=== PATIENT | female | born 1940 | race Hispanic/Latino ===

== ENCOUNTER 2019-07-02 11:59 | Emergency (ER) | payer OTHER ==
--- NOTE | 2019-07-02 15:58 | ER ---
Nurse's Notes [facility] Name: Marsha Jacob Age: 79 yrs Sex: Female : 1940 Arrival Date: 07/02/2019 Time: 12:00 Bed 30 Private MD: Diagnosis: Cellulitis of face-pereorbital Presentation: 07/02 12:51 Presenting complaint: Patient states: I have had redness around my eyes for 3 weeks. la1 Transition of care: patient was not received from another setting of care. Mechanism of Injury: No Mechanism of Injury. The patient denies any loss of vision. Onset of symptoms was July 02, 2019. Risk Assessment: Do you want to hurt yourself or someone else? Patient reports no desire to harm self or others. Initial Sepsis Screen: Does the patient meet any 2 criteria? No. Patient's initial sepsis screen is negative. Does the patient have a suspected source of infection? No. Patient's initial sepsis screen is negative. Care prior to arrival: None. 12:51 Method Of Arrival: Ambulatory la1 12:51 Acuity: OSCAR 5 la1 Historical: - Allergies: 15:19 No Known Allergies; rv - PMHx: 15:19 Bladder Spasms; Hyperlipidemia; Hypertension; rv - PSHx: 15:19 Unable to obtain; rv - Immunization history:: Adult Immunizations up to date. - Social history:: Smoking status: Patient/guardian denies using tobacco. - Ebola Screening: : No symptoms or risks identified at this time. - Family history:: not pertinent. - Hospitalizations: : No recent hospitalization is reported. Screenin:04 Abuse screen: Denies threats or abuse. Denies injuries from another. Nutritional rv screening: No deficits noted. Tuberculosis screening: No symptoms or risk factors identified. Fall Risk None identified. Assessment: 15:03 General: Appears in no apparent distress. comfortable, Behavior is calm, cooperative. rv Pain: Denies pain. Neuro: Level of Consciousness is awake, alert, obeys commands, Oriented to person, place, time, situation. Cardiovascular: Patient's skin is warm and dry. Respiratory: No deficits noted. Airway is patent. GI: No signs and/or symptoms were reported involving the gastrointestinal system. : No signs and/or symptoms were reported regarding the genitourinary system. EENT: Eyes Sclera/Cornea. Derm: Skin is red, PERIORBITAL. Musculoskeletal: No signs and/or symptoms reported regarding the musculoskeletal system. Vital Signs: 12:53 BP 174 / 74; Pulse 78; Resp 16; Temp 98.1; Pulse Ox 100% on R/A; la1 15:19 BP 166 / 75; Pulse 73; Resp 17; Pulse Ox 100% on R/A; rv Visual Acuity: 15:18 Left Eye Visual acuity 20/20, Pupil size 3 mm, ; Right Eye Visual acuity 20/20, Pupil rv size 3 mm, ; Both Eyes Visual acuity 20/20; Without Lenses; ED Course: 12:00 Patient arrived in ED. as 12:52 Triage completed. la1 12:52 Arm band placed on right wrist. la1 14:09 Festus Abreu MD is Attending Physician. ma2 14:48 Gibson Bueno MD is Referral Physician. ma2 15:02 Michael Khan, MICHELINE is Primary Nurse. rv 15:04 Patient has correct armband on for positive identification. Bed in low position. Call rv light in reach. Side rails up X 1. Adult w/ patient. Pulse ox on. NIBP on. 15:04 No provider procedures requiring assistance completed. Patient did not have IV access rv during this emergency room visit. Administered Medications: No medications were administered Outcome: 14:50 Discharge ordered by . ma2 15:05 Discharged to home ambulatory, with family. rv 15:05 Condition: unchanged 15:05 Discharge instructions given to patient, family, Instructed on discharge instructions, rv follow up and referral plans. medication usage, Demonstrated understanding of instructions, follow-up care, medications, Prescriptions given X 3. 15:19 Patient left the ED. rv Signatures: Sue Zepeda Lee, RN RN la1 Festus Abreu MD MD ma2 Michael Khan RN RN rv
--- NOTE | 2019-07-02 15:58 | EDPHYS ---
Physician Documentation [facility] Name: Marsha Jacob Age: 79 yrs Sex: Female : 1940 Arrival Date: 07/02/2019 Time: 12:00 Bed 30 Private MD: ED Physician Festus Arbeu HPI: 07/02 14:45 This 79 yrs old Female presents to ER via Ambulatory with complaints of Eye ma2 Pain. 14:45 periorbital edema and redness . Onset: The symptoms/episode began/occurred gradually, 2 ma2 day(s) ago. Associated signs and symptoms: Pertinent positives: periorbital redness , Pertinent negatives: chills, ear ache, headache. Severity of symptoms: At their worst the symptoms were mild in the emergency department the symptoms are unchanged. The patient has not experienced similar symptoms in the past. Historical: - Allergies: 15:19 No Known Allergies; rv - PMHx: 15:19 Bladder Spasms; Hyperlipidemia; Hypertension; rv - PSHx: 15:19 Unable to obtain; rv - Immunization history:: Adult Immunizations up to date. - Social history:: Smoking status: Patient/guardian denies using tobacco. - Ebola Screening: : No symptoms or risks identified at this time. - Family history:: not pertinent. - Hospitalizations: : No recent hospitalization is reported. ROS: 14:45 Constitutional: Negative for fever, chills, and weight loss, Skin: Negative for injury, ma2 rash, and discoloration. 14:45 Eyes: Positive for discharge, Negative for photophobia, redness, sunken appearance, swelling, tearing, vision loss, visual disturbance. 14:45 All other systems are negative. Exam: 14:45 Visual Acuity: Visual acuity is within normal limits. ma2 14:45 Constitutional: This is a well developed, well nourished patient who is awake, alert, and in no acute distress. Head/Face: Normocephalic, atraumatic. Eyes: has periorbital edema and rendness, otherwise Pupils equal round and reactive to light, extra-ocular motions intact. Lids and lashes normal. Conjunctiva and sclera are non-icteric and not injected. Cornea within normal limits. Periorbital areas with no swelling, redness, or edema. ENT: Nares patent. No nasal discharge, no septal abnormalities noted. Tympanic membranes are normal and external auditory canals are clear. Oropharynx with no redness, swelling, or masses, exudates, or evidence of obstruction, uvula midline. Mucous membranes moist. Neck: Trachea midline, no thyromegaly or masses palpated, and no cervical lymphadenopathy. Supple, full range of motion without nuchal rigidity, or vertebral point tenderness. No Meningismus. Chest/axilla: Normal chest wall appearance and motion. Nontender with no deformity. No lesions are appreciated. Cardiovascular: Regular rate and rhythm with a normal S1 and S2. No gallops, murmurs, or rubs. Normal PMI, no JVD. No pulse deficits. Respiratory: Lungs have equal breath sounds bilaterally, clear to auscultation and percussion. No rales, rhonchi or wheezes noted. No increased work of breathing, no retractions or nasal flaring. Vital Signs: 12:53 BP 174 / 74; Pulse 78; Resp 16; Temp 98.1; Pulse Ox 100% on R/A; la1 15:19 BP 166 / 75; Pulse 73; Resp 17; Pulse Ox 100% on R/A; rv Visual Acuity: 15:18 Left Eye Visual acuity 20/20, Pupil size 3 mm, ; Right Eye Visual acuity 20/20, Pupil rv size 3 mm, ; Both Eyes Visual acuity 20/20; Without Lenses; MDM: 14:09 Patient medically screened. ma2 14:45 Differential diagnosis: Acute iritis of Ultraviolet keratitis in. Data reviewed: vital ma2 signs, nurses notes. Counseling: I had a detailed discussion with the patient and/or guardian regarding: the historical points, exam findings, and any diagnostic results supporting the discharge/admit diagnosis, the presence of at least one elevated blood pressure reading (>120/80) during this emergency department visit, the need for outpatient follow up. Response to treatment: the patient's symptoms have mildly improved after treatment. Administered Medications: No medications were administered Disposition: 07/02/19 14:50 Discharged to Home. Impression: Cellulitis of face - pereorbital. - Condition is Stable. - Discharge Instructions: Preseptal Cellulitis, Adult. - Prescriptions for Augmentin 875- 125 mg Oral Tablet - take 1 tablet by ORAL route every 12 hours for 10 days; 20 tablet. Benadryl 25 mg Oral Capsule - take 1 capsule by ORAL route every 6 hours As needed; 30 tablet. Gentamicin 0.3 % Ophthalmic Drops - instill 1 drop by OPHTHALMIC route every 4 hours for 7 days; 1 bottle. - Medication Reconciliation Form, Thank You Letter, Antibiotic Education, Prescription Opioid Use form. - Follow up: Gibson Bueno MD; When: Tomorrow; Reason: If symptoms return, Continuance of care. Signatures: Osbaldo Jain RN RN la1 Festus Abreu MD MD ma2 Michael Khan RN RN rv Corrections: (The following items were deleted from the chart) 15:19 14:50 07/02/2019 14:50 Discharged to Home. Impression: Cellulitis of face - rv pereorbital. Condition is Stable. Forms are Medication Reconciliation Form, Thank You Letter, Antibiotic Education, Prescription Opioid Use. Follow up: Gibson Bueno; When: Tomorrow; Reason: If symptoms return, Continuance of care. ma2
[2019-07-02 18:32] VITALS: TEMP 98.1; O2SAT 100
[2019-07-02 18:35] VITALS: BP 166/75
== END 2019-07-02 15:19 | disposition home or self-care (01) ==
LOC: ER 11:59
DX: L03.213 Periorbital cellulitis (principal)
CPT/HCPCS: 99283

== ENCOUNTER 2019-07-20 11:27 | Emergency (ER) | payer OTHER ==
[2019-07-20 11:50] LABS: Absolute Lymphocytes (CBC) 2.8 K/uL (0.7-4.9); Basophils % 0.6 % (0-1.3); Hematocrit 40.7 % (36.0-45.0); MPV 11.3 fL (7.6-11.3); Protime INR 1.08; RBC Red Blood Cell Count 4.67 M/uL (3.86-4.86)
[2019-07-20] MEDS ORDERED: ASPIRIN 81 MG CHEWABLE TABLET ONE (11:52)
[2019-07-20] MEDS ORDERED: ONDANSETRON 4 MG/2 ML VIAL ONE (11:53)
--- NOTE | 2019-07-20 12:03 | RAD REPORT ---
EXAM DESCRIPTION: RAD - Chest Single View - 07/20/2019 11:47 am CLINICAL HISTORY: CHEST PAIN Chest pain. COMPARISON: Chest Single View dated 03/30/2016 FINDINGS: Portable technique limits examination quality. The lungs are grossly clear. The heart is normal in size. No displaced fractures. IMPRESSION: No acute intrathoracic process suspected.
[2019-07-20 12:08] LABS: ALT/SGPT 20 U/L (12-78); AST/SGOT 14 U/L (15-37); Albumin 3.8 g/dL (3.4-5.0); Alkaline Phosphatase 65 U/L (45-117); BUN Blood Urea Nitrogen 13 mg/dL (7-18); Bicarbonate 27 mmol/L (21-32); Bilirubin Direct 0.2 mg/dL (0-0.2); Bilirubin Total 0.6 mg/dL (0.2-1.0); Glucose Level 129 mg/dL (74-106); NT PRO-BNP 174 pg/mL (<450); Potassium 3.6 mmol/L (3.5-5.1); Sodium Level 137 mmol/L (136-145); Troponin (Emerg Dept Use Only) < 0.02 ng/mL (0.0-0.045)
--- NOTE | 2019-07-20 12:33 | ER ---
Nurse's Notes [facility] Name: Marsha Jacob Age: 79 yrs Sex: Female : 1940 Arrival Date: 07/20/2019 Time: 11:28 Bed 5 Private MD: Diagnosis: Dizziness and giddiness;Nausea Presentation: 07/20 11:30 Presenting complaint: EMS states: Right sided neck pain x 1 month, headache, nausea, hb dizziness, and left sided chest pain today. Transition of care: patient was not received from another setting of care. Onset of symptoms was July 20, 2019. Risk Assessment: Do you want to hurt yourself or someone else? Patient reports no desire to harm self or others. Initial Sepsis Screen: Does the patient meet any 2 criteria? No. Patient's initial sepsis screen is negative. Does the patient have a suspected source of infection? No. Patient's initial sepsis screen is negative. Care prior to arrival: None. 11:30 Method Of Arrival: EMS: [facility] hb 11:30 Acuity: OSCAR 3 hb Historical: - Allergies: 11:32 No Known Allergies; hb - PMHx: 11:32 Bladder Spasms; Hyperlipidemia; Hypertension; hb - Immunization history:: Adult Immunizations up to date. - Social history:: Smoking status: Patient/guardian denies using tobacco. - Ebola Screening: : No symptoms or risks identified at this time. Screenin:32 Abuse screen: Denies threats or abuse. Denies injuries from another. Nutritional hb screening: No deficits noted. Tuberculosis screening: No symptoms or risk factors identified. Fall Risk None identified. Assessment: 11:33 General: Appears in no apparent distress. Behavior is calm, cooperative. Pain: Pain hb currently is 7 out of 10 on a pain scale. Neuro: Level of Consciousness is awake, alert, obeys commands, Oriented to person, place, time, situation. Cardiovascular: Heart tones S1 S2 present Capillary refill < 3 seconds Patient's skin is warm and dry. Respiratory: Airway is patent Respiratory effort is even, unlabored, Respiratory pattern is regular, symmetrical, Breath sounds are clear bilaterally. GI: Reports nausea. : No signs and/or symptoms were reported regarding the genitourinary system. EENT: No signs and/or symptoms were reported regarding the EENT system. Derm: Skin is pink, warm \T\ dry. Musculoskeletal: Reports right sided neck pain. 12:16 Reassessment: Patient appears in no apparent distress at this time. Patient and/or hb family updated on plan of care and expected duration. Pain level reassessed. Patient is alert, oriented x 3, equal unlabored respirations, skin warm/dry/pink. Vital Signs: 11:31 BP 177 / 86; Pulse 88; Resp 16; Temp 97.9; Pulse Ox 100% on R/A; Weight 70.31 kg; hb Height 5 ft. 2 in. (157.48 cm); Pain 7/10; 11:31 Body Mass Index 28.35 (70.31 kg, 157.48 cm) hb ED Course: 11:28 Patient arrived in ED. hb 11:31 Triage completed. hb 11:31 Arm band placed on. hb 11:32 Patient has correct armband on for positive identification. Bed in low position. Call hb light in reach. Side rails up X 1. 11:35 Inserted saline lock: 20 gauge in left antecubital area, using aseptic technique. Blood ph collected. 11:40 Martin Albert PA is PHCP. jr8 11:40 Naveen Gu MD is Attending Physician. jr8 11:44 EKG done, by ct tech. reviewed by Martin KOO. at1 11:46 X-ray completed. Portable x-ray completed in exam room. Patient tolerated procedure jb2 well. 11:47 XRAY Chest (1 view) In Process Unspecified. EDMS 12:16 Seema Ca, RN is Primary Nurse. hb 12:43 No provider procedures requiring assistance completed. IV discontinued, intact, hb bleeding controlled, No redness/swelling at site. Pressure dressing applied. Administered Medications: 12:05 Drug: Zofran 4 mg Route: IVP; Site: left antecubital; hb 12:05 Drug: Aspirin Chewable Tablet 324 mg Route: PO; hb Outcome: 12:32 Discharge ordered by . jr8 12:43 Discharged to home ambulatory, with family. hb 12:43 Condition: stable 12:43 Discharge instructions given to patient, family, Instructed on discharge instructions, follow up and referral plans. medication usage, Demonstrated understanding of instructions, follow-up care, medications. 12:48 Patient left the ED. hb Signatures: Dispatcher [employer] Familia Shaffer jb2 Martin Albert PA PA jr8 Alma Meyer, agriculture department chair EKG Tat1 Anna Marie Celis, MICHELINE RN Seema Ca RN RN hb
--- NOTE | 2019-07-20 12:33 | EDPHYS ---
Physician Documentation [facility] Name: Marsha Jacob Age: 79 yrs Sex: Female : 1940 Arrival Date: 07/20/2019 Time: 11:28 Bed 5 Private MD: ED Physician Naveen Gu HPI: 07/20 11:55 This 79 yrs old Female presents to ER via EMS with complaints of Neck Pain, jr8 >24Hrs Old, Chest Pain. 11:55 This 79 yrs old Female presents to ER via EMS with complaints of chest pain. jr8 11:56 The patient or guardian reports chest pain that is located primarily in the substernal jr8 area. Onset: this morning. The pain radiates to right neck. Associated signs and symptoms: Pertinent positives: diaphoresis, dizziness, nausea, near-syncope. The chest pain is described as sharp. Severity of pain: At its worst the pain was mild this morning. Pt was watching TV at home and got "sweaty" then became nauseous and dizzy, felt that she was going to pass out. Reports she is still feeling chest pain now.. Historical: - Allergies: 11:32 No Known Allergies; hb - PMHx: 11:32 Bladder Spasms; Hyperlipidemia; Hypertension; hb - Immunization history:: Adult Immunizations up to date. - Social history:: Smoking status: Patient/guardian denies using tobacco. - Ebola Screening: : No symptoms or risks identified at this time. ROS: 11:59 Constitutional: Negative for fever, chills, and weight loss, Eyes: Negative for injury, jr8 pain, redness, and discharge, ENT: Negative for injury, pain, and discharge, Neck: Negative for injury, pain, and swelling, Cardiovascular: Negative palpitations, and edema, + for chest pain Respiratory: Negative for shortness of breath, cough, wheezing, and pleuritic chest pain, Abdomen/GI: Negative for abdominal pain, nausea, vomiting, diarrhea, and constipation, Back: Negative for injury and pain, MS/Extremity: Negative for injury and deformity, Skin: Negative for injury, rash, and discoloration, Neuro: Negative for headache, weakness, numbness, tingling, and seizure. Exam: 11:59 Constitutional: This is a well developed, well nourished patient who is awake, alert, jr8 and in no acute distress. Head/Face: Normocephalic, atraumatic. Eyes: Pupils equal round and reactive to light, extra-ocular motions intact. Lids and lashes normal. Conjunctiva and sclera are non-icteric and not injected. Cornea within normal limits. Periorbital areas with no swelling, redness, or edema. Neck: Trachea midline, no thyromegaly or masses palpated, and no cervical lymphadenopathy. Supple, full range of motion without nuchal rigidity, or vertebral point tenderness. No Meningismus. Chest/axilla: Normal chest wall appearance and motion. Nontender with no deformity. No lesions are appreciated. Cardiovascular: Regular rate and rhythm with a normal S1 and S2. No gallops, murmurs, or rubs. Normal PMI, no JVD. No pulse deficits. Respiratory: Lungs have equal breath sounds bilaterally, clear to auscultation and percussion. No rales, rhonchi or wheezes noted. No increased work of breathing, no retractions or nasal flaring. Abdomen/GI: Soft, non-tender, with normal bowel sounds. No distension or tympany. No guarding or rebound. No evidence of tenderness throughout. Back: No spinal tenderness. No costovertebral tenderness. Full range of motion. Skin: Warm, dry with normal turgor. Normal color with no rashes, no lesions, and no evidence of cellulitis. MS/ Extremity: Pulses equal, no cyanosis. Neurovascular intact. Full, normal range of motion. Neuro: Awake and alert, GCS 15, oriented to person, place, time, and situation. Cranial nerves II-XII grossly intact. Motor strength 5/5 in all extremities. Sensory grossly intact. Cerebellar exam normal. Normal gait. 11:59 Cardiovascular: Rate: normal, Pulses: no pulse deficits are appreciated, Heart sounds: normal, normal S1and S2, Edema: is not appreciated, JVD: is not appreciated. Vital Signs: 11:31 BP 177 / 86; Pulse 88; Resp 16; Temp 97.9; Pulse Ox 100% on R/A; Weight 70.31 kg; hb Height 5 ft. 2 in. (157.48 cm); Pain 7/10; 11:31 Body Mass Index 28.35 (70.31 kg, 157.48 cm) hb MDM: 11:40 Patient medically screened. jr8 12:26 The patient was given aspirin in the Emergency Department. Data reviewed: vital signs, jr8 nurses notes, EMS record, lab test result(s), EKG, radiologic studies. Data interpreted: Pulse oximetry: on room air is 100 %. Interpretation: normal. Counseling: I had a detailed discussion with the patient and/or guardian regarding: the historical points, exam findings, and any diagnostic results supporting the discharge/admit diagnosis, the presence of at least one elevated blood pressure reading (>120/80) during this emergency department visit, lab results, radiology results, the need for outpatient follow up, a director dermatology, a family practitioner. Special discussion: Based on the patient's history, exam, and Dx evaluation, there is no indication for emergent intervention or inpatient Tx. It is understood by the patient/guardian that if the Sx's persist or worsen they need to return immediately for re-evaluation. I discussed with the patient/guardian in detail that at this point there is no indication for admission to the hospital. It is understood, however, that if the symptoms persist or worsen the patient needs to return immediately for re-evaluation. ED course: Pt currently chest pain free in the ED, reports that the pain that she had in her chest was a sharp non-radiating pain and that the pain in her neck is a chronic issue that she has been dealing with. Pt able to get up and walk without dizziness, SOB, or chest pain. Family and patient amendable to going home and scheduling appointments with PCP and cardiology. Pt did not have syncope, reports eating raw oysers last night and having some stomach upset last night as well. Denies abd pain. ECG, CXR normal, troponin negative in ED. extensive discussion with family regarding return precautions and need for FU with PCP and cardiology. . 07/20 11:35 Order name: Basic Metabolic Panel; Complete Time: 12:09 ph 07/20 11:35 Order name: CBC with Diff; Complete Time: 11:57 ph 07/20 11:35 Order name: LFT's; Complete Time: 12: ph 07/20 11:35 Order name: Magnesium; Complete Time: 12: ph 07/20 11:35 Order name: NT PRO-BNP; Complete Time: 12: ph 07/20 11:35 Order name: PT-INR; Complete Time: 11:57 ph 07/20 11:35 Order name: Troponin (emerg Dept Use Only); Complete Time: 12:09 ph 07/20 11:35 Order name: XRAY Chest (1 view); Complete Time: 12:07 ph 07/20 11:35 Order name: EKG; Complete Time: 11:36 ph 07/20 11:35 Order name: Cardiac monitoring; Complete Time: 11:35 ph 07/20 11:35 Order name: EKG - Nurse/Tech; Complete Time: 12:02 ph 07/20 11:35 Order name: IV Saline Lock; Complete Time: 11:35 ph 07/20 11:35 Order name: Labs collected and sent; Complete Time: 11:35 ph 07/20 11:35 Order name: O2 Per Protocol; Complete Time: 11:35 ph 07/20 11:35 Order name: O2 Sat Monitoring; Complete Time: 11:35 ph Administered Medications: 12:05 Drug: Zofran 4 mg Route: IVP; Site: left antecubital; hb 12:05 Drug: Aspirin Chewable Tablet 324 mg Route: PO; hb Disposition: 15:29 Co-signature as Attending Physician, Naveen Gu MD. Disposition: 07/20/19 12:32 Discharged to Home. Impression: Dizziness and giddiness, Nausea. - Condition is Stable. - Discharge Instructions: Dizziness, Nausea, Adult, Near-Syncope. - Family Work Release, Medication Reconciliation Form, Thank You Letter form. - Follow up: Private Physician; When: 2 - 3 days; Reason: Recheck today's complaints, Re-evaluation by your physician. Follow up: Emergency Department; Reason: If symptoms return, Worsening of condition. - Problem is new. - Symptoms are resolved. Signatures: Dispatcher [employer] EDMS Martin Albert PA PA jr8 Anna Marie Celis RN RN Seema Ca RN RN Naveen Gu MD MD Corrections: (The following items were deleted from the chart) 12:48 12:32 07/20/2019 12:32 Discharged to Home. Impression: Dizziness and giddiness; Nausea. hb Condition is Stable. Forms are Medication Reconciliation Form, Thank You Letter, Antibiotic Education, Prescription Opioid Use. Follow up: Private Physician; When: 2 - 3 days; Reason: Recheck today's complaints, Re-evaluation by your physician. Follow up: Emergency Department; Reason: If symptoms return, Worsening of condition. Problem is new. Symptoms are resolved. jr8
--- NOTE | 2019-07-20 12:53 | EKG ---
Test Date: 2019-07-20 Test Time: 11:52:12 [employer] Supervisor: NOHEMY MEASUREMENT RESULTS: Intervals: Rate: 75 MN: 168 QRSD: 86 QT: 392 QTc: 437 [place]: P: 40 MN: 168 QRS: 36 T: 52 INTERPRETIVE STATEMENTS: Normal sinus rhythm Normal ECG Compared to ECG 03/30/2016 19:10:09 No significant changes Electronically Signed On 07-20-19 12:52:46 CDT by Raz Shelley
[2019-07-20 13:06] VITALS: BP 177/86; TEMP 97.9; O2SAT 100
== END 2019-07-20 12:48 | disposition home or self-care (01) ==
LOC: ER 11:27
DX: R42 Dizziness and giddiness (principal); R11.0 Nausea
CPT/HCPCS: 93005; 85025; 80048; 36415; 83735; 85610; 80076; 84484; 83880; 71045; 96374; 99284; J2405

== ENCOUNTER 2021-07-12 18:37 | Inpatient (IN) | payer OTHER ==
[2021-07-12] MEDS ORDERED: ONDANSETRON 4 MG/2 ML VIAL ONE (19:30)
--- NOTE | 2021-07-12 19:43 | RAD REPORT ---
EXAM DESCRIPTION: RAD - Chest Single View - 07/12/2021 7:22 pm CLINICAL HISTORY: fall, chest pain COMPARISON: July 2019 TECHNIQUE: AP portable chest image was obtained 07/12/2021 7:22 pm . FINDINGS: Lungs are clear. Interstitial pattern matches comparison. Heart and vasculature are normal . No measurable pleural effusion and no pneumothorax. No acute bony abnormality seen. No acute aortic findings suspected. IMPRESSION: No acute cardiopulmonary process. No significant change from comparison study.
[2021-07-12 20:24] LABS: Absolute Lymphocytes (CBC) 1.3 K/uL (0.7-4.9); Basophils % 0.3 % (0-1.3); Hematocrit 37.2 % (36.0-45.0); Lymphocytes % 7.7 % (15.3-44.8); MPV 10.6 fL (7.6-11.3); RBC Red Blood Cell Count 4.26 M/uL (3.86-4.86)
[2021-07-12 20:28] LABS: Protime INR 1.1
--- NOTE | 2021-07-12 20:41 | RAD REPORT ---
EXAM DESCRIPTION: CT - Head C Spine Cap W Con - 07/12/2021 7:52 pm CLINICAL HISTORY: low back pain from fall, fall with head, neck, chest and abdomen pain COMPARISON: Abdomen Pelvis W Contrast dated 03/30/2016 TECHNIQUE: Axial [address] head images were obtained. Axial [address] cervical spine images were obtaine d with sagittal and coronal reconstruction images reviewed. During dynamic enhancement of 100mL non-i onic contrast, axial 5 mm images of the chest, abdomen and pelvis were obtained. Biphasic technique p erformed of the abdomen and pelvis. All CT scans are performed using dose optimization technique as appropriate and may include automated exposure control or mA/KV adjustment according to patient size. FINDINGS: No intracranial hemorrhage, mass or edema. No midline shift or abnormal fluid collection. Moderate atrophy and chronic ischemic changes are present. Ventricles are in proportion to the amount of volume loss. Mastoid air cells and paranasal sinuses are clear. No skull fracture. CT cervical spine imaging shows normal height. Normal alignment of the vertebrae. C5-6, C6-7 and C7-T 1 disc space narrowing present. Prominent facet joint degenerative changes are present at multiple le vels. Bony foraminal encroachment changes are present on the right at C5-6 and bilateral at C6-7. No paraspinal mass or hematoma seen. Central canal detail is inherently limited. Concerns for traumatic disc herniation or traumatic cord injury can be further addressed with MR imaging. Trace amount of airspace opacification present in the subpleural posterior midportion left lower lobe . This could be atelectasis. With fall history, punctate focus of pulmonary contusion is possible. No mediastinal hematoma and the aorta and pulmonary arteries are unremarkable. No chest will mass or ab normal axillary finding. No rib fractures are present. No acute thoracic vertebral body finding. CT abdomen and pelvis show no injury to solid abdominal viscera. Gallbladder and biliary tree are unr emarkable. No bowel injury or significant finding. No free air, free fluid or abnormal stranding. No urinary bladder abnormality. Very minimal loss in height in the superior endplate L1. There does appear to be an acute fracture li ne parallel to the superior endplate. Posterior wall height is preserved. Overall loss in height is a pproximately 10%. Pedicles are intact. No pelvic fracture. No significant vascular finding. IMPRESSION: No significant CT Head finding. Patient has moderate severity atrophy and chronic ischem ic change. No significant CT Cervical Spine finding. Patient has moderate severity mid and lower cervical spine degenerative change. No significant CT chest finding. There is punctate focus of atelectasis versus very minimal pulmonary contusion posterior left lower lobe. No associated rib fracture or pleural abnormality. No traumatic injury to the soft tissues of the abdomen or pelvis. Suspected 10% compression fracture of the superior endplate L1 with posterior wall height preserved. Correlation is needed with localizing symptoms.
[2021-07-12 20:58] LABS: ALT/SGPT 22 U/L (12-78); Alkaline Phosphatase 57 U/L (45-117); BUN Blood Urea Nitrogen 18 mg/dL (7-18); Bicarbonate 26 mmol/L (21-32); Bilirubin Direct < 0.1 mg/dL (0-0.2); Bilirubin Total 0.4 mg/dL (0.2-1.0); Glucose Level 146 mg/dL (74-106); NT PRO-BNP 172 pg/mL (<450); Protein, Total 6.8 g/dL (6.4-8.2); Sodium Level 136 mmol/L (136-145); Troponin (Emerg Dept Use Only) < 0.02 ng/mL (0.0-0.045)
[2021-07-12 21:02] LABS: AST/SGOT 23 U/L (15-37); Magnesium 2.1 mg/dL (1.8-2.4); Potassium 4.3 mmol/L (3.5-5.1)
[2021-07-12 21:30] LABS: Blood Morphology Comment NOT SEEN (NOT SEEN); Platelet Estimate ADEQ; White Blood Cell Scan OK (OK)
[2021-07-12 21:40] LABS: Urine Blood 2+ (Negative); Urine Glucose Negative (Negative); Urine Protein Negative (Negative); Urine Specific Gravity 1.015 (1.005-1.030); Urine pH 5.5 (5.0-7.0)
--- NOTE | 2021-07-12 21:44 | ER ---
Nurse's Notes [facility] Name: Marsha Jacob Age: 81 yrs Sex: Female : 1940 Arrival Date: 07/12/2021 Time: 18:42 Bed 14 Private MD: Diagnosis: UTI/ Urinary tract infection, site not specified;Weakness;Fracture of first lumbar vertebra;Fall on same level, unspecified Presentation: 07/12 18:50 Chief complaint: Patient states: [place] weak, fell, and hit head. No LOC. Reports low ll1 back pain since the fall. EMS states: 20 G L hand, fentanyl 100 mcg IV given en route, she started to vomit so they gave her Zofran 4 mg IV for that. Coronavirus screen: Client denies travel out of the [place] in the last 14 days. At this time, the client does not indicate any symptoms associated with coronavirus-19. Ebola Screen: Patient denies travel to an Ebola-affected area in the 21 days before illness onset. Initial Sepsis Screen: Does the patient meet any 2 criteria? No. Patient's initial sepsis screen is negative. Does the patient have a suspected source of infection? No. Patient's initial sepsis screen is negative. Risk Assessment: Do you want to hurt yourself or someone else? Patient reports no desire to harm self or others. Onset of symptoms was July 12, 2021. 18:50 Method Of Arrival: EMS: [place] [id number] 18:50 Acuity: OSCAR 3 ll1 Triage Assessment: 18:53 General: Appears ill, Behavior is calm, cooperative, appropriate for age. Pain: ll1 Complains of pain in low back Quality of pain is described as aching, Aggravated by increased activity. Neuro: Level of Consciousness is awake, alert, obeys commands, Oriented to person, place, time, situation, Appropriate for age Weight And Test Bar Clerk are equal bilaterally Moves all extremities. Full function Speech is normal, Facial symmetry appears normal, Reports a syncopal episode. Cardiovascular: No deficits noted. Respiratory: No deficits noted. GI: Abdomen is flat, Bowel sounds present X 4 quads. Abd is soft and non tender X 4 quads. Reports nausea, vomiting. Musculoskeletal: Circulation, motion, and sensation intact. Capillary refill < 3 seconds, Range of motion: intact in all extremities, Reports pain in low back. Injury Description: Head injury. Historical: - Allergies: 18:53 No Known Drug Allergies; ll1 - PMHx: 18:53 Bladder Spasms; Hyperlipidemia; Hypertension; ll1 - Immunization history:: Adult Immunizations up to date. - Social history:: Smoking status: Patient denies any tobacco usage or history of. Screenin:55 Abuse screen: Denies threats or abuse. Nutritional screening: No deficits noted. ll1 Tuberculosis screening: No symptoms or risk factors identified. Fall Risk Fall in past 12 months (25 points). IV access (20 points). Gait- Weak (10 pts.). Total Lawler Fall Scale indicates High Risk Score (45 or more points). Fall prevention measures have been instituted. Side Rails Up X 2 Placed Close to Nursing Station Frequent Obs/Assessments Occuring Family Present and informed to notify staff if the need to leave the bedside As available patient and family educated on Fall Prevention Program and Strategies. Assessment: 19:15 Reassessment: Patient appears in no apparent distress at this time. General: Appears cc4 uncomfortable, Behavior is anxious. Pain: Complains of pain in back waist Pain began 1 hour ago. Vital Signs: 18:50 BP 219 / 74; Pulse 91; Resp 17; Temp 98.5(TE); Pulse Ox 98% ; Pain 8/10; ll1 19:15 BP 172 / 78; Pulse 88; Resp 20; Temp 97.9(O); Pulse Ox 95% on R/A; cc4 21:50 BP 157 / 63; Pulse 94; Resp 18; Temp 97.7; Pulse Ox 96% on R/A; cc4 23:00 BP 185 / 74; Pulse 96; Resp 18; Pulse Ox 100% on R/A; cc4 1011 00:00 BP 177 / 70; Pulse 92; Resp 18; Temp 98.1; Pulse Ox 95% on R/A; cc4 01:00 BP 179 / 67; Pulse 81; Resp 18 S; Pulse Ox 98% on R/A; cc4 02:00 BP 191 / 75; Pulse 83; Resp 18; Pulse Ox 95% on R/A; cc4 03:00 BP 193 / 53; Pulse 76; Resp 20; Pulse Ox 96% on R/A; cc4 04:30 BP 181 / 64; Pulse 82; Resp 18; Temp 97.9(O); Pulse Ox 96% on R/A; cc4 NIH Stroke Scale Scores: 07/12 19:25 NIHSS Score: 0 cp ED Course: 18:42 Patient arrived in ED. ll1 18:50 Arm band placed on Patient placed in an exam room, on a stretcher. ll1 18:53 Triage completed. ll1 18:53 Maintain EMS IV. Dressing intact. Good blood return noted. Site clean \\T\\ dry. Gauge \\T\\ ll 1 site: 20 G L hand. 18:55 Patient has correct armband on for positive identification. Bed in low position. Call ll1 light in reach. Side rails up X2. Pulse ox on. NIBP on. 18:58 Haroon Maki PA is PHCP. cp 18:58 Farrukh Xiong MD is Attending Physician. cp 19:08 Alicia Fletcher RN is Primary Nurse. ll1 19:22 XRAY Chest (1 view) In Process Unspecified. EDMS 19:51 CT Traumagram (Head C Spine CAP W Con) In Process Unspecified. EDMS 21:42 Doe Carvajal PA is Hospitalizing Provider. cp 07/13 01:27 Tomas Andersen is Hospitalizing Provider. cp 01:34 COVID-19 : Document "Date of Symptom Onset" if Symptomatic. Sent. cc4 04:45 No provider procedures requiring assistance completed. cc4 04:45 Patient admitted, IV remains in place. intact. cc4 Administered Medications: 07/12 19:00 Drug: NS 0.9% 500 ml Route: IV; Rate: bolus; Site: left wrist; cc4 19:00 Drug: NS 0.9% 500 ml Route: IV; Rate: 100 ml/hr; Site: left wrist; cc4 07/13 05:02 Follow up: IV Intake: 1000ml cc4 07/12 19:07 Drug: Zofran (Ondansetron) 4 mg Route: IVP; Site: left hand; ll1 21:22 CANCELLED (Physician Discretion): morphine 2 mg IVP once; (PAIN>8) RASS on ADMN: cp Combtv4, Very Agttd3, Agttd2, Rstlss1, AlertClm0, Drwsy-1, LtSdtn-2, ModSdtn-3, DpSdtn-4, UnArsble-5 x2 23:55 Drug: morphine 2 mg Route: IVP; Site: left wrist; cc4 07/13 01:00 Follow up: Response: No adverse reaction; Pain is decreased cc4 07/12 23:55 Drug: Rocephin (cefTRIAXone) 1 grams Route: IV; Rate: calculated rate; Site: left wrist;cc4 07/13 01:00 Follow up: Urine output 400 ml; Response: No adverse reaction cc4 Intake: 05:02 IV: 1000ml; Total: 1000ml. cc4 Output: 01:00 Urine: 400ml; Total: 400ml. cc4 Outcome: 07/12 21:43 Decision to Hospitalize by Provider. cp 07/13 04:45 Condition: stable cc4 04:45 Discharge instructions given to Instructed on the need for admit, Demonstrated cc4 understanding of instructions. 04:59 Admitted to Med/surg accompanied by tech, room 213, Report called to MICHELINE Segovia cc4 05:04 Patient left the ED. cc4 NIH Stroke Scale - NIH Stroke Score Date: 07/12/2021 Time: 19:25 Total Score = 0 1a. Level of Consciousness (LOC) - 0(Alert) 1b. Level of Consciousness (LOC) (Month \\T\\ Age) - 0(Both) 1c. LOC Commands (Open \\T\\ Closes Eyes/Athlete Manager) - 0(Both) 2. Best Gaze (Lateral Gaze Paresis) - 0(Normal) 3. Visual Field Loss - 0(No visual loss) 4. Facial Palsy - 0(Normal) 5a. Left Arm: Motor (10-second hold) - 0(No drift) 5b. Right Arm: Motor (10-second hold) - 0(No drift) 6a. Left Leg: Motor (5-second hold - always test supine) - 0(No drift) 6b. Right Leg: Motor (5-second hold - always test supine) - 0(No drift) 7. Limb Ataxia (finger/nose \\T\\ heel/jackson - test with eyes open) - 0(Absent) 8. Sensory Loss (pinprick arms/legs/face) - 0(Normal) 9. Best Language: Aphasia (description/naming/reading) - 0(No aphasia) 10. Dysarthria (speech clarity - read or repeat words) - 0(Normal) 11. Extinction and Inattention (visual/tactile/auditory/spatial/personal) - 0(No abnormality) Initials: cp Signatures: Dispatcher [employer] EDHaroon Senior PA PA cp Lewis, Lynsay RN RN ll1 Daiana Nagel RN RN cc4
--- NOTE | 2021-07-12 21:44 | EDPHYS ---
Physician Documentation [facility] Name: Marsha Jacob Age: 81 yrs Sex: Female : 1940 Arrival Date: 07/12/2021 Time: 18:42 Bed 14 Private MD: ED Physician Farrukh Xiong HPI: 07/12 19:15 This 81 yrs old Female presents to ER via EMS with complaints of Back Pain cp from Fall. 19:15 Details of fall: The patient fell from an upright position, while walking, and struck a cp tile surface. 19:15 Onset: The symptoms/episode began/occurred just prior to arrival. Associated injuries: cp The patient sustained upper back injury, pain, injury to the low back, pain. 19:15 Severity of symptoms: in the emergency department the symptoms have improved, cp moderately, patient given 100 mcg Fentanyl IV by EMS ferry boat captain. 19:15 Patient reports she became weak causing her to fall to ground. Patient denies syncope cp and denies LOC. Historical: - Allergies: 18:53 No Known Drug Allergies; ll1 - PMHx: 18:53 Bladder Spasms; Hyperlipidemia; Hypertension; ll1 - Immunization history:: Adult Immunizations up to date. - Social history:: Smoking status: Patient denies any tobacco usage or history of. ROS: 19:20 Constitutional: Negative for body aches, chills, fever, poor PO intake. cp 19:20 Eyes: Negative for injury, pain, redness, and discharge. cp 19:20 Cardiovascular: Negative for chest pain, palpitations. 19:20 Respiratory: Negative for cough, shortness of breath, wheezing. 19:20 Abdomen/GI: Positive for nausea, Negative for abdominal pain, vomiting, diarrhea, constipation, black/tarry stool, rectal bleeding. 19:20 Back: Positive for pain at rest, pain with movement, of the thoracic area and lumbar area. 19:20 MS/extremity: Negative for injury or acute deformity, decreased range of motion. 19:20 Neuro: Positive for weakness, Negative for altered mental status, dizziness, headache, loss of consciousness, syncope. 19:20 All other systems are negative. Exam: 19:25 Constitutional: The patient appears in no acute distress, alert, awake, cp non-diaphoretic, non-toxic, well developed, well nourished, uncomfortable. 19:25 Head/Face: Normocephalic, atraumatic. cp 19:25 Eyes: Periorbital structures: appear normal, Pupils: equal, round, and reactive to light and accomodation, Extraocular movements: intact throughout, Conjunctiva: normal, no exudate, no injection, Sclera: no appreciated abnormality, Lids and lashes: appear normal, bilaterally. 19:25 ENT: External ear(s): are unremarkable, Nose: is normal, Mouth: Lips: moist, Oral mucosa: moist, Posterior pharynx: Airway: no evidence of obstruction, patent. 19:25 Neck: C-spine: vertebral tenderness, is not appreciated, crepitus, is not appreciated, ROM/movement: pain, is not appreciated, limited range of motion, is not appreciated. 19:25 Chest/axilla: Inspection: normal, Palpation: is normal, no crepitus, no tenderness. 19:25 Cardiovascular: Rate: normal, Rhythm: regular, Edema: is not appreciated, JVD: is not appreciated. 19:25 Respiratory: the patient does not display signs of respiratory distress, Respirations: normal, no use of accessory muscles, no retractions, labored breathing, is not present, Breath sounds: are clear throughout, no decreased breath sounds, no stridor, no wheezing. 19:25 Abdomen/GI: Inspection: abdomen appears normal, Bowel sounds: active, all quadrants, Palpation: abdomen is soft and non-tender, in all quadrants, rebound tenderness, is not appreciated, involuntary guarding, is not appreciated. 19:25 Back: pain, that is severe, of the thoracic area and lumbar area, ROM is painful, with all movement, Straight leg raises: pain bilaterally. 19:25 Skin: cellulitis, is not appreciated, no rash present. 19:25 Neuro: Orientation: to person, place \\T\\ time. Mentation: is normal, Cerebellar function: Romberg testing is negative, normal finger to nose testing, Motor: moves all fours, general weakness with no focal deficits, Sensation: is normal. 19:37 ECG was reviewed by the Attending Physician. cp Vital Signs: 18:50 BP 219 / 74; Pulse 91; Resp 17; Temp 98.5(TE); Pulse Ox 98% ; Pain 8/10; ll1 19:15 BP 172 / 78; Pulse 88; Resp 20; Temp 97.9(O); Pulse Ox 95% on R/A; cc4 21:50 BP 157 / 63; Pulse 94; Resp 18; Temp 97.7; Pulse Ox 96% on R/A; cc4 23:00 BP 185 / 74; Pulse 96; Resp 18; Pulse Ox 100% on R/A; cc4 07/13 00:00 BP 177 / 70; Pulse 92; Resp 18; Temp 98.1; Pulse Ox 95% on R/A; cc4 01:00 BP 179 / 67; Pulse 81; Resp 18 S; Pulse Ox 98% on R/A; cc4 02:00 BP 191 / 75; Pulse 83; Resp 18; Pulse Ox 95% on R/A; cc4 03:00 BP 193 / 53; Pulse 76; Resp 20; Pulse Ox 96% on R/A; cc4 04:30 BP 181 / 64; Pulse 82; Resp 18; Temp 97.9(O); Pulse Ox 96% on R/A; cc4 NIH Stroke Scale Scores: 07/12 19:25 NIHSS Score: 0 cp MDM: 19:07 Patient medically screened. cp 19:30 Differential diagnosis: closed head injury, contusion, fracture, multiple trauma, CVA. cp 21:45 Data reviewed: vital signs, nurses notes, lab test result(s), EKG, radiologic studies, cp CT scan, plain films. 21:45 Test interpretation: by ED physician or midlevel provider: ECG, plain radiologic cp studies. Counseling: I had a detailed discussion with the patient and/or guardian regarding: the historical points, exam findings, and any diagnostic results supporting the discharge/admit diagnosis, lab results, radiology results, the need for further work-up and treatment in the hospital. Response to treatment: the patient's symptoms have mildly improved after treatment, and as a result, I will admit patient. Physician consultation: Doe KOO was called at 21:40, was contacted at 21:40, regarding admission, to the telemetry unit. patient's condition. 07/12 19:10 Order name: Basic Metabolic Panel; Complete Time: 21:11 cp 07/12 21:11 Interpretation: Normal except: GLUC 146; GFR 82; CA 8.4. cp 07/12 19:10 Order name: CBC with Diff; Complete Time: 21:37 cp 07/12 20:44 Interpretation: Normal except: WBC 16.60; MONICA% 88.1; LYM% 7.7; NEUT A 14.6. cp 07/12 19:10 Order name: LFT's; Complete Time: 21:11 cp 07/12 19:10 Order name: Magnesium; Complete Time: 21:11 cp 07/12 19:10 Order name: NT PRO-BNP; Complete Time: 21:11 cp 07/12 19:10 Order name: PT-INR; Complete Time: 20:42 cp 07/12 19:10 Order name: Troponin (emerg Dept Use Only); Complete Time: 21:11 cp 07/12 19:10 Order name: Urine Microscopic Only; Complete Time: 23:48 cp 07/12 19:10 Order name: Ptt, Activated; Complete Time: 20:42 cp 07/12 20:38 Order name: CBC Smear Scan; Complete Time: 21:37 EDMS 07/12 21:39 Order name: COVID-19 : Document "Date of Symptom Onset" if Symptomatic. cp 07/12 21:40 Order name: Urine Dipstick-Ancillary; Complete Time: 21:42 EDMS 07/12 21:42 Order name: Procalcitonin; Complete Time: 23:48 cp 07/12 21:42 Order name: Lactate; Complete Time: 23:48 cp 07/12 19:10 Order name: Cath cp 07/12 19:10 Order name: CT Traumagram (Head C Spine CAP W Con); Complete Time: 20:42 cp 07/12 19:10 Order name: XRAY Chest (1 view); Complete Time: 20:42 cp 07/12 19:10 Order name: EKG; Complete Time: 19:11 cp 07/12 19:10 Order name: Cardiac monitoring; Complete Time: 19:43 cp 07/12 19:10 Order name: EKG - Nurse/Tech; Complete Time: 19:43 cp 07/12 19:10 Order name: IV Saline Lock; Complete Time: 19:43 cp 07/12 19:10 Order name: Labs collected and sent; Complete Time: 21:50 cp 07/12 21:42 Order name: Blood Culture Adult (2) cp 07/13 03:14 Order name: SARS-COV-2 RT PCR EDMS 07/12 19:10 Order name: O2 Per Protocol; Complete Time: 21:51 cp 07/12 19:10 Order name: O2 Sat Monitoring; Complete Time: 21:51 cp 07/12 19:10 Order name: Urine Dipstick-Ancillary (obtain specimen); Complete Time: 21:50 cp EC:37 Rate is 88 beats/min. Rhythm is regular. WV interval is normal. QRS interval is normal. cp QT interval is normal. T waves are Inverted in lead aVR. Interpreted by me. Reviewed by me. Administered Medications: 19:00 Drug: NS 0.9% 500 ml Route: IV; Rate: bolus; Site: left wrist; [facility] 19:00 Drug: NS 0.9% 500 ml Route: IV; Rate: 100 ml/hr; Site: left wrist; [facility] 07/13 05:02 Follow up: IV Intake: 1000ml [facility] 07/12 19:07 Drug: Zofran (Ondansetron) 4 mg Route: IVP; Site: left hand; 1 21:22 CANCELLED (Physician Discretion): morphine 2 mg IVP once; (PAIN>8) RASS on ADMN: cp Combtv4, Very Agttd3, Agttd2, Rstlss1, AlertClm0, Drwsy-1, LtSdtn-2, ModSdtn-3, DpSdtn-4, UnArsble-5 x2 23:55 Drug: morphine 2 mg Route: IVP; Site: left wrist; 4 07/13 01:00 Follow up: Response: No adverse reaction; Pain is decreased [facility] 07/12 23:55 Drug: Rocephin (cefTRIAXone) 1 grams Route: IV; Rate: calculated rate; Site: left wrist;4 07/13 01:00 Follow up: Urine output 400 ml; Response: No adverse reaction [facility] Disposition Summary: 07/12/21 21:43 Hospitalization Ordered Hospitalization Status: Inpatient Admission cp [facility] cp Condition: Stable cp Problem: new cp Symptoms: have improved cp Bed/Room Type: Standard cp Provider: Tomas Andersen(07/13/21 01:27) cp Room Assignment: [facility](07/13/21 03:20) mw Diagnosis - UTI/ Urinary tract infection, site not specified cp - Weakness cp - Fracture of first lumbar vertebra cp - Fall on same level, unspecified cp Forms: - Medication Reconciliation Form cp - SBAR form cp NIH Stroke Scale - NIH Stroke Score Date: 07/12/2021 Time: 19:25 Total Score = 0 1a. Level of Consciousness (LOC) - 0(Alert) 1b. Level of Consciousness (LOC) (Month \\T\\ Age) - 0(Both) 1c. LOC Commands (Open \\T\\ Closes Eyes/Personal Financial Counselor) - 0(Both) 2. Best Gaze (Lateral Gaze Paresis) - 0(Normal) 3. Visual Field Loss - 0(No visual loss) 4. Facial Palsy - 0(Normal) 5a. Left Arm: Motor (10-second hold) - 0(No drift) 5b. Right Arm: Motor (10-second hold) - 0(No drift) 6a. Left Leg: Motor (5-second hold - always test supine) - 0(No drift) 6b. Right Leg: Motor (5-second hold - always test supine) - 0(No drift) 7. Limb Ataxia (finger/nose \\T\\ heel/jackson - test with eyes open) - 0(Absent) 8. Sensory Loss (pinprick arms/legs/face) - 0(Normal) 9. Best Language: Aphasia (description/naming/reading) - 0(No aphasia) 10. Dysarthria (speech clarity - read or repeat words) - 0(Normal) 11. Extinction and Inattention (visual/tactile/auditory/spatial/personal) - 0(No abnormality) Initials: cp Addendum: 07/16/2021 01:57 Co-signature as Attending Physician, Farrukh Xiong MD I agree with the collections attorney and plan of care. Attestation: The patient's history, exam findings, diagnostics, and a summary of any interventions or procedures was reviewed in detail with Haroon KOO. Signatures: Dispatcher [employer] EDMS Debora Sullivan RN RN mw Nieto, Roman, MD MD rn Page, Corey, PA PA cp Lewis, Lynsay, RN RN ll1 Daiana Nagel RN RN cc4 Corrections: (The following items were deleted from the chart) 07/12 21:11 21:11 Normal except: GLUC 146; GFR 82. cp cp 21:22 21:21 morphine 2 mg IVP once; (PAIN>8) RASS on ADMN: Combtv4, Very Agttd3, cp Agttd2, Rstlss1, AlertClm0, Drwsy-1, LtSdtn-2, ModSdtn-3, DpSdtn-4, UnArsble-5 x2 ordered. cp 07/13 01:27 07/12 21:43 Doe Carvajal cp 07/13 03:20 07/12 21:43 cp
--- NOTE | 2021-07-12 22:36 | P.HP ---
Certification for Inpatient Patient will require the following post-hospital care: None Practitioner: I am a practitioner with admitting privileges, knowledge of patient current condition, hospital course, and medical plan of care. Services: Services provided to patient in accordance with Admission requirements found in Title 42 Section 412.3 of the Code of Federal Regulations Patient History Date of Service: 07/12/21 Primary Care Provider: Tobin Reason for admission: compression fracture, UTI History of Present Illness: Ms. Jacob is an 81 yo F with HTN, HLD who presents wafter a fall. She was doing laundry and whe nshe stood up she felt dizzy and fell backwards and hit her head. She did not lose consciousness. She then had severe lower back pain and nausea, and she received 100 mcg of fentanyl by EMS. Pain now markedly improved. Denies vomiting, confusion, urinary symptoms. Per her daughter, she has been falling a lot lately. A week ago she [place] and fell [place] the [place] after it rained. WBC 16.6. UA positive for nitrites. CT Traumogram: Suspected 10% compression fracture of the superior endplate L1 with posterior wall height preserved. Correlation is needed with localizing symptoms. Allergies No Known Drug Allergies Allergy (Verified 03/23/16 16:28) Unknown No Known Allergies Allergy (Uncoded 03/31/16 08:32) Unknown Home Medications: Lisinopril/Hydrochlorothiazide [Zestoretic 20-25 mg Tablet] 1 each PO DAILY 03/23/16 Oxybutynin Chloride [Ditropan] 5 mg PO BID 03/23/16 Simvastatin [Zocor] 40 mg PO BEDTIME 03/23/16 Ciprofloxacin HCl [Cipro 500 MG Tablet] 500 mg PO BID #10 tab 03/24/16 Codeine/APAP [Tylenol W/Codeine #3 tab] 1 tab PO Q4HP PRN #30 tab 03/24/16 Travoprost (Benzalkonium) [Travatan 0.004% Eye Drop] 1 applic OTIC DAILY 03/31/16 - Past Medical/Surgical History Diabetic: No -: HTN -: HLD -: cardiac stent - Family History Family History: Reviewed- Non-Contributory - Social History Smoking Status: Never smoker Alcohol use: No CD- Drugs: No Caffeine use: Yes Place of Residence: Home Review of Systems 10-point ROS is otherwise unremarkable Gastrointestinal: Nausea Musculoskeletal: Back Pain Physical Examination - Physical Exam General: Alert, In no apparent distress HEENT: Atraumatic, PERRLA, Mucous membr. moist/pink, EOMI, Sclerae nonicteric Neck: Supple, 2+ carotid pulse no bruit, No LAD, Without JVD or thyroid abnormality Respiratory: Clear to auscultation bilaterally, Normal air movement Cardiovascular: Regular rate/rhythm, Normal S1 S2 Gastrointestinal: Normal bowel sounds, No tenderness Musculoskeletal: Tenderness Integumentary: No rashes Neurological: Normal speech, Normal tone, Sensation intact, Normal affect Lymphatics: No axilla or inguinal lymphadenopathy - Studies Laboratory Data (last 24 hrs) 07/12/21 20:00: PT 12.7 H, INR 1.10, APTT 31.8 07/12/21 20:00: WBC 16.60 H, Hgb 12.2, Hct 37.2, Plt Count 156 07/12/21 20:00: Sodium 136, Potassium 4.3, BUN 18, Creatinine 0.69, Glucose 146 H, Magnesium 2.1, Total Bilirubin 0.4, AST 23, ALT 22, Alkaline Phosphatase 57 Assessment and Plan - Problems (Diagnosis) (1) HTN (hypertension) Current Visit: Yes Status: Chronic Qualifiers: Hypertension type: primary hypertension Qualified Code(s): I10 - Essential (primary) hypertension (2) HLD (hyperlipidemia) Current Visit: Yes Status: Chronic Qualifiers: Hyperlipidemia type: unspecified Qualified Code(s): E78.5 - Hyperlipidemia, unspecified (3) Vertebral compression fracture Current Visit: Yes Status: Acute Qualifiers: Encounter type: initial encounter Fracture of vertebra location: lumbar Lumbar vertebra fracture level: L1 Qualified Code(s): S32.010A - Wedge compression fracture of first lumbar vertebra, initial encounter for closed fracture (4) UTI (urinary tract infection) Current Visit: Yes Status: Acute Qualifiers: Urinary tract infection type: acute cystitis Hematuria presence: with hematuria Qualified Code(s): N30.01 - Acute cystitis with hematuria - Plan continue IV antibiotics pain management as needed physical therapy consulted reconcile and continue home medications hydralazine PRN for BP spikes DVT ppx Discharge Plan: Home Plan to discharge in: 24 Hours - Advance Directives Does patient have a Living Will: No Does patient have a Durable POA for Healthcare: No - Code Status/Comfort Care Code Status Assessed: Yes (full code ) Critical Care: No Time Spent Managing Pts Care (In Minutes): 70
[2021-07-12 22:57] LABS: Urine Bacteria >50 /HPF (<20); Urine RBC <5 /HPF (NONE SEEN); Urine Urothelial Cells <5 /HPF (NONE SEEN)
[2021-07-13] MEDS ORDERED: MORPHINE 2 MG/ML SYR ONE (00:12)
[2021-07-13] MEDS ORDERED: CEFTRIAXONE 1000 MG/VIAL ONE (00:12)
[2021-07-13] MEDS ORDERED: ACETAMINOPHEN 500 MG TAB PO PRN (03:52)
[2021-07-13] MEDS: ONDANSETRON 4 MG/2 ML VIAL IV PRN ×2 (05:20→14:00)
[2021-07-13] MEDS: MORPHINE 4 MG/ML SYR IV PRN ×2 (05:20→14:00)
[2021-07-13 05:41] VITALS: BMI 26.2
[2021-07-13 05:49] LABS: Absolute Lymphocytes (CBC) 1.3 K/uL (0.7-4.9); Basophils % 0.4 % (0-1.3); Hematocrit 40.6 % (36.0-45.0); Lymphocytes % 11.9 % (15.3-44.8); MPV 10.6 fL (7.6-11.3); RBC Red Blood Cell Count 4.72 M/uL (3.86-4.86)
[2021-07-13] MEDS: HYDRALAZINE HCL 20 MG/ML VIAL IV PRN (06:08)
[2021-07-13 06:17] LABS: ALT/SGPT 21 U/L (12-78); AST/SGOT 19 U/L (15-37); Albumin 3.4 g/dL (3.4-5.0); Alkaline Phosphatase 67 U/L (45-117); BUN Blood Urea Nitrogen 14 mg/dL (7-18); Bicarbonate 26 mmol/L (21-32); Bilirubin Total 0.4 mg/dL (0.2-1.0); Glucose Level 133 mg/dL (74-106); Magnesium 2.1 mg/dL (1.8-2.4); Phosphorus 3.4 mg/dL (2.5-4.9); Potassium 3.9 mmol/L (3.5-5.1); Protein, Total 7.6 g/dL (6.4-8.2); Sodium Level 137 mmol/L (136-145)
--- NOTE | 2021-07-13 07:05 | EKG ---
Test Date: 2021-07-12 Test Time: 19:31:24 Production Operator: SKINNY MEASUREMENT RESULTS: Intervals: Rate: 88 IA: 162 QRSD: 82 QT: 368 QTc: 445 [place]: P: 57 IA: 162 QRS: 45 T: 46 INTERPRETIVE STATEMENTS: Normal sinus rhythm Normal ECG Compared to ECG 07/20/2019 11:52:12 No significant changes Electronically Signed On 07-13-21 07:04:29 CDT by Karlos Sidhu
[2021-07-13] MEDS: INSULIN -REGULAR HUMAN 50 UNIT/0.5 ML ML SQ SCH ×4 (07:30→20:55)
[2021-07-13] MEDS ORDERED: POTASSIUM CL SA 10 MEQ TAB PO ONE (09:00)
[2021-07-13] MEDS ORDERED: PROMETHAZINE INJ 25 MG/ML AMP IV ONE (09:10)
[2021-07-13] MEDS ORDERED: INFLUENZA VACCINE (for 6+ mo) 0.5 ML DOSE IMVAC ONE (12:00)
--- NOTE | 2021-07-13 15:18 | P.PN ---
Subjective Date of Service: 07/13/21 Primary Care Provider: Tobin Chief Complaint: compression fracture, UTI Patient experiencing nausea and vomiting today. She rates her back pain as 8/10. No fever. Physical Examination - Vital Signs Temperature: 97.2 F Blood Pressure: 149/55 Pulse: 80 Respirations: 19 Pulse Ox (%): 95 - Physical Exam General: Alert, Mild distress HEENT: Mucous membr. moist/pink Neck: JVD not distended Respiratory: Clear to auscultation bilaterally, Normal air movement Cardiovascular: No edema, Regular rate/rhythm, Normal S1 S2 Gastrointestinal: Normal bowel sounds, Soft and benign, Non-distended, No tenderness Musculoskeletal: No swelling Integumentary: No rashes Neurological: Normal strength at 5/5 x4 extr - Studies Laboratory Data (last 24 hrs) 07/13/21 05:30: Sodium 137, Potassium 3.9, BUN 14, Creatinine 0.62, Glucose 133 H, Phosphorus 3.4, Magnesium 2.1, Total Bilirubin 0.4, AST 19, ALT 21, Alkaline Phosphatase 67 07/13/21 05:30: WBC 11.30 H D, Hgb 13.5, Hct 40.6, Plt Count 140 L 07/12/21 20:00: PT 12.7 H, INR 1.10, APTT 31.8 07/12/21 20:00: WBC 16.60 H, Hgb 12.2, Hct 37.2, Plt Count 156 07/12/21 20:00: Sodium 136, Potassium 4.3, BUN 18, Creatinine 0.69, Glucose 146 H, Magnesium 2.1, Total Bilirubin 0.4, AST 23, ALT 22, Alkaline Phosphatase 57 Assessment And Plan - Current Problems (Diagnosis) (1) Fall Current Visit: Yes Status: Acute (2) UTI (urinary tract infection) Current Visit: Yes Status: Acute Qualifiers: Urinary tract infection type: acute cystitis Hematuria presence: with hematuria Qualified Code(s): N30.01 - Acute cystitis with hematuria (3) Vertebral compression fracture Current Visit: Yes Status: Acute Qualifiers: Encounter type: initial encounter Fracture of vertebra location: lumbar Lumbar vertebra fracture level: L1 Qualified Code(s): S32.010A - Wedge compression fracture of first lumbar vertebra, initial encounter for closed fracture (4) HTN (hypertension) Current Visit: Yes Status: Chronic Qualifiers: Hypertension type: primary hypertension Qualified Code(s): I10 - Essential (primary) hypertension - Plan Continue IV antibiotics for UTI. Follow urine culture. Blood cultures are pending. Supportive measures with anti-emetics. Pain management as needed. Obtain MRI of the lumbar spine. PT to evaluate. Resume home antihypertensives.
--- NOTE | 2021-07-13 17:45 | RAD REPORT ---
EXAM DESCRIPTION: MRI - Lumbar Spine Wo Con - 07/13/2021 5:36 pm CLINICAL HISTORY: L1 fracture COMPARISON: July 12, 2021 cat scan TECHNIQUE: Sagittal T1, T2 and STIR weighted sequences were obtained. Axial T1 and T2 sequences were obtained through the lumbar disc levels. FINDINGS: An acute fracture involves the superior endplate of the L1 vertebral body. Surrounding steffany ma is present. Compression of the vertebral body 10%. No retropulsion of fracture fragment into the s parviz canal. Remainder of the lumbar spine unremarkable. IMPRESSION: Acute fracture L1 vertebral body with mild compression
[2021-07-13] MEDS: ATORVASTATIN 20 MG TAB PO SCH ×2 (20:53→20:56)
[2021-07-13] MEDS: DIFLUPREDNATE OPHTHALMIC 5 ML BOT EACH EYE SCH (20:55)
[2021-07-13] MEDS ORDERED: CEFTRIAXONE 1 GM/NS 50 ML 1 GM/50 ML BAG IV SCH (21:00)
[2021-07-14] MEDS: HYDRALAZINE HCL 20 MG/ML VIAL IV PRN (00:57)
[2021-07-14 05:38] LABS: Absolute Lymphocytes (CBC) 1.3 K/uL (0.7-4.9); Basophils % 0.8 % (0-1.3); Hematocrit 38.1 % (36.0-45.0); Lymphocytes % 12.8 % (15.3-44.8); MPV 10.3 fL (7.6-11.3); RBC Red Blood Cell Count 4.39 M/uL (3.86-4.86)
[2021-07-14 05:57] LABS: BUN Blood Urea Nitrogen 17 mg/dL (7-18); Bicarbonate 25 mmol/L (21-32); Glucose Level 107 mg/dL (74-106); Sodium Level 138 mmol/L (136-145)
[2021-07-14] MEDS ORDERED: TRAMADOL HCL 50 MG TAB PO PRN (06:20)
[2021-07-14] MEDS: INSULIN -REGULAR HUMAN 50 UNIT/0.5 ML ML SQ SCH ×4 (07:30→20:35)
[2021-07-14] MEDS: hydroCHLOROthiazide 12.5 MG CAP PO SCH (08:55)
[2021-07-14] MEDS: AMLODIPINE 5 MG TAB PO SCH (08:55)
[2021-07-14] MEDS ORDERED: lisinopriL 20 MG TAB PO SCH (09:00)
[2021-07-14] MEDS: Meropenem 1 GM/100 ML BAG IV SCH ×2 (09:55→16:50)
--- NOTE | 2021-07-14 10:12 | P.CNS ---
Date of Consult: 07/14/21 Primary Care Provider: Tobin Chief Complaint: compression fracture, UTI History of Present Illness: Patient is an 81-year-old female with past medical history of hypertension hyperlipidemia who presented to the emergency after sustaining a mechanical fall at home while doing laundry. Patient has a that she started feeling dizzy and fell back and hit her head, she did not lose consciousness. She had severe lower back pain and nausea. She is found to have a lumbar compression fracture. Urinalysis grew multi-drug resistant ESBL producing E coli. Infectious disease has been consulted to manage the patient's antibiotic regimen. Patient currently denies nausea/vomiting/diarrhea/shortness breath/chest pain. Patient reports lower back pain. Allergies No Known Drug Allergies Allergy (Verified 03/23/16 16:28) Unknown No Known Allergies Allergy (Uncoded 03/31/16 08:32) Unknown Home Medications: Simvastatin [Zocor] 40 mg PO BEDTIME 03/23/16 Amlodipine Besylate [Norvasc] 5 mg PO DAILY 07/13/21 Difluprednate [Durezol 0.05%] 1 drops EACH EYE BEDTIME 07/13/21 Lisinopril/Hydrochlorothiazide [Lisinopril-Hctz 20-12.5 mg Tab] 1 tab PO DAILY 07/13/21 - Past Medical/Surgical History Diabetic: No -: HTN -: HLD -: cardiac stent - Social History Alcohol use: No CD- Drugs: No Caffeine use: Yes Place of Residence: Home Review of Systems 10-point ROS is otherwise unremarkable Physical Examination Temp Pulse Resp BP Pulse Ox 97.4 F 92 H 18 173/72 H 95 07/14/21 08:00 07/14/21 08:55 07/14/21 08:00 07/14/21 08:55 07/14/21 08:00 General: Alert, In no apparent distress, Oriented x3 HEENT: Atraumatic, PERRLA Neck: Supple, 2+ carotid pulse no bruit, JVD not distended Respiratory: Clear to auscultation bilaterally, Normal air movement Cardiovascular: No edema, Normal pulses Capillary refill: <2 Seconds Gastrointestinal: Normal bowel sounds, Soft and benign Musculoskeletal: No clubbing, No swelling, No contractures Integumentary: No rashes, No breakdown, No significant lesion Conclusions/Impression: Assessment/plan UTI Urine culture performed on 07/12 growing multi-drug resistant ESBL producing E coli. Recommend continuing meropenem for 5-7 days. Protein caloric malnutrition Recommend supplemental Ensure protein drinks. Vertebral compression fracture/hypertension/hyperlipidemia Medical management per primary team Plan of care discussed with Dr. Turner. Thank you for consultation.
--- NOTE | 2021-07-14 12:39 | P.PN ---
Date of Service: 07/14/21 Subjective: Feeling better, continues with lower back pain but feels like it is improving Has not worked with physical therapy yet Pain medication is helping ROS: 10 point review of systems otherwise negative Physical Exam General: Alert, NAD HEENT: Mucous membr. moist/pink Respiratory: Clear to auscultation bilaterally, Normal air movement Cardiovascular: No edema, Regular rate/rhythm, Normal S1 S2 Gastrointestinal: Soft and benign, Non-distended, No tenderness Musculoskeletal: No joint swelling, mild tenderness palpation of the lumbar spine area Integumentary: No rashes Neurological: Normal strength at 5/5 x4 extr Problem list L1 compression fracture s/p mechanical fall Acute cystitis Hypertension Was on IV Rocephin, changed to meropenem. Urine culture now resulting ESBL. ID consulted Blood cultures without growth Patient feeling better, tolerating diet Continue pain medication as needed Physical therapy to evaluate patient today Antihypertensives restarted yesterday Will need 5 days of IV meropenem, will order midline VTE: Lovenox Code: full Dispo: anticipate dc home in ~1-2 days
[2021-07-14] MEDS: lisinopriL 20 MG TAB PO SCH (13:50)
[2021-07-14] MEDS: ONDANSETRON 4 MG/2 ML VIAL IV PRN (16:50)
[2021-07-14] MEDS: ENOXAPARIN 40 MG/0.4 ML SQ SCH (16:50)
[2021-07-14] MEDS: ATORVASTATIN 20 MG TAB PO SCH (20:34)
[2021-07-14] MEDS: DIFLUPREDNATE OPHTHALMIC 5 ML BOT EACH EYE SCH (20:34)
[2021-07-15] MEDS: Meropenem 1 GM/100 ML BAG IV SCH ×3 (00:16→16:27)
[2021-07-15 05:49] LABS: Magnesium 2.2 mg/dL (1.8-2.4); Potassium 3.8 mmol/L (3.5-5.1)
[2021-07-15 06:01] LABS: Hematocrit 36.3 % (36.0-45.0); MPV 10.6 fL (7.6-11.3); RBC Red Blood Cell Count 4.22 M/uL (3.86-4.86)
[2021-07-15] MEDS: INSULIN -REGULAR HUMAN 50 UNIT/0.5 ML ML SQ SCH ×4 (07:30→21:00)
[2021-07-15] MEDS: lisinopriL 20 MG TAB PO SCH (08:44)
[2021-07-15] MEDS: AMLODIPINE 5 MG TAB PO SCH (08:45)
[2021-07-15] MEDS: hydroCHLOROthiazide 12.5 MG CAP PO SCH (08:45)
[2021-07-15] MEDS ORDERED: POTASSIUM CL SA 10 MEQ TAB PO ONE (09:00)
--- NOTE | 2021-07-15 10:17 | P.PN ---
Subjective Date of Service: 07/15/21 Primary Care Provider: Tobin Chief Complaint: compression fracture, UTI Patient seen examined at bedside, doing well no acute complaints. Tolerating antibiotics well with no nausea/vomiting/diarrhea. Review of Systems 10-point ROS is otherwise unremarkable Physical Examination - Vital Signs Temperature: 97.8 F Blood Pressure: 183/94 Pulse: 90 Respirations: 16 Pulse Ox (%): 93 - Studies Laboratory Last Values WBC 11.30 K/uL (4.3-10.9) H D 07/13/21 05:30 RBC 4.72 M/uL (3.86-4.86) 07/13/21 05:30 Hgb 13.5 g/dL (12.0-15.0) 07/13/21 05:30 Hct 40.6 % (36.0-45.0) 07/13/21 05:30 MCV 86.2 fL (80-100) 07/13/21 05:30 MCH 28.6 pg (27.0-35.0) 07/13/21 05:30 MCHC 33.2 g/dL (32.0-36.0) 07/13/21 05:30 RDW 14.7 % (12.1-15.2) 07/13/21 05:30 Plt Count 140 K/uL (152-406) L 07/13/21 05:30 MPV 10.6 fL (7.6-11.3) 07/13/21 05:30 Neutrophils % 84.6 % (41.7-73.7) H 07/13/21 05:30 Lymphocytes % 11.9 % (15.3-44.8) L 07/13/21 05:30 Monocytes % 3.1 % (3.3-12.3) L 07/13/21 05:30 Eosinophils % 0.0 % (0-4.4) 07/13/21 05:30 Basophils % 0.4 % (0-1.3) 07/13/21 05:30 Absolute Neutrophils 9.6 K/uL (1.8-8.0) H 07/13/21 05:30 Absolute Lymphocytes 1.3 K/uL (0.7-4.9) 07/13/21 05:30 Absolute Monocytes 0.4 K/uL (0.1-1.3) 07/13/21 05:30 Absolute Eosinophils 0.0 K/uL (0-0.5) 07/13/21 05:30 Absolute Basophils 0.0 K/uL (0-0.5) 07/13/21 05:30 Platelet Estimate Adeq 07/12/21 20:00 Morphology Comment Not seen (NOT SEEN) 07/12/21 20:00 PT 12.7 SECONDS (9.5-12.5) H 07/12/21 20:00 INR 1.10 07/12/21 20:00 APTT 31.8 SECONDS (24.3-36.9) 07/12/21 20:00 Sodium 137 mmol/L (136-145) 07/13/21 05:30 Potassium 3.9 mmol/L (3.5-5.1) 07/13/21 05:30 Chloride 105 mmol/L (98-107) 07/13/21 05:30 Carbon Dioxide 26 mmol/L (21-32) 07/13/21 05:30 BUN 14 mg/dL (7-18) 07/13/21 05:30 Creatinine 0.62 mg/dL (0.55-1.3) 07/13/21 05:30 Whole Bld Creatinine 0.7 mg/dL (0.6-1.3) 07/12/21 19:43 Estimated GFR > 90 mL/min (=/>90) 07/13/21 05:30 Glucose 133 mg/dL (74-106) H 07/13/21 05:30 POC Glucose 88 mg/dL (65-120) 07/13/21 11:55 Lactic Acid 0.9 mmol/L (0.4-2.0) 07/12/21 22:47 Calcium 8.6 mg/dL (8.5-10.1) 07/13/21 05:30 Phosphorus 3.4 mg/dL (2.5-4.9) 07/13/21 05:30 Magnesium 2.1 mg/dL (1.8-2.4) 07/13/21 05:30 Total Bilirubin 0.4 mg/dL (0.2-1.0) 07/13/21 05:30 Direct Bilirubin < 0.1 mg/dL (0-0.2) 07/12/21 20:00 AST 19 U/L (15-37) 07/13/21 05:30 ALT 21 U/L (12-78) 07/13/21 05:30 Alkaline Phosphatase 67 U/L (45-117) 07/13/21 05:30 Rapid Troponin I < 0.02 ng/mL (0.0-0.045) 07/12/21 20:00 NT-Pro-B Natriuret Pep 172 pg/mL (<450) 07/12/21 20:00 Serum Total Protein 7.6 g/dL (6.4-8.2) 07/13/21 05:30 Albumin 3.4 g/dL (3.4-5.0) 07/13/21 05:30 Globulin 4.2 g/dL (2.3-3.5) H 07/13/21 05:30 Albumin/Globulin Ratio 0.8 (1.1-1.8) L 07/13/21 05:30 25-OH Vitamin D Total 28.3 ng/mL (30-100) L 07/13/21 05:30 Procalcitonin < 0.05 ng/mL (<0.050) 07/12/21 22:51 TSH 1.220 uIU/mL (0.360-3.740) 07/13/21 05:30 Free T4 1.18 ng/dL (0.76-1.46) 07/13/21 05:30 PTH Intact 50.8 pg/mL (18.4-80.1) 07/13/21 05:30 Urine pH 5.5 (5.0-7.0) 07/12/21 21:37 Ur Specific [place] 1.015 (1.005-1.030) 07/12/21 21:37 Glucose (UA)(Auto) Negative (Negative) 07/12/21 21:37 Urine Ketones 1+ (Negative) H 07/12/21 21:37 Urine Blood 2+ (Negative) H 07/12/21 21:37 Urine Nitrite Positive (Negative) H 07/12/21 21:37 Ur Leukocyte Esterase Negative (Negative) 07/12/21 21:37 Urine RBC <5 /HPF (NONE SEEN) 07/12/21 21:37 Urine WBC <5 /HPF (<5) 07/12/21 21:37 Ur Squamous Epith Cells <5 /HPF (NONE SEEN) 07/12/21 21:37 Ur Urothelial Cells <5 /HPF (NONE SEEN) 07/12/21 21:37 Urine Bacteria >50 /HPF (<20) H 07/12/21 21:37 Urine Culture Reflexed Reflexed 07/12/21 21:37 Urine Total Protein Negative (Negative) 07/12/21 21:37 SARS-CoV-2 Rap RNA(RT-PCR) Negative (NEGATIVE) 07/13/21 01:25 Smear Scan Ok (OK) 07/12/21 20:00 Microbiology Data (last 24 hrs): 07/12/21 21:37 Clean Catch Urine [place] Count - Final >100,000 CFU/ML. 07/12/21 21:37 Clean Catch Urine - Final Escherichia Coli Esbl Assessment And Plan - Plan Physical Exam: General: Alert, In no apparent distress, Oriented x3 HEENT: Atraumatic, PERRLA Neck: Supple, 2+ carotid pulse no bruit, JVD not distended Respiratory: Clear to auscultation bilaterally, Normal air movement Cardiovascular: No edema, Normal pulses Capillary refill: <2 Seconds Gastrointestinal: Normal bowel sounds, Soft and benign Musculoskeletal: No clubbing, No swelling, No contractures Integumentary: No rashes, No breakdown, No significant lesion Conclusions/Impression: Assessment/plan UTI Urine culture performed on 07/12 growing multi-drug resistant ESBL producing E coli. Recommend continuing meropenem for 5-7 days. Patient has midline placed. Protein caloric malnutrition Recommend supplemental Ensure protein drinks. Vertebral compression fracture/hypertension/hyperlipidemia Medical management per primary team Plan of care discussed with Dr. Turner. Thank you for consultation.
--- NOTE | 2021-07-15 15:52 | P.PN ---
Date of Service: 07/15/21 Subjective: Feeling better, continues with lower back pain but feels like it is improving every day Worked with PT yesterday. Pain medication is helping, last needed yesterday >2 day since IV pain medication ROS: 10 point review of systems otherwise negative Physical Exam General: Alert, NAD HEENT: Mucous membr. moist/pink Respiratory: Clear to auscultation bilaterally, Normal air movement Cardiovascular: No edema, Regular rate/rhythm, Normal S1 S2 Gastrointestinal: Soft and benign, Non-distended, No tenderness Musculoskeletal: No joint swelling, mild tenderness palpation of the lumbar spine area Integumentary: No rashes Neurological: Normal strength at 5/5 x4 extr Problem list L1 compression fracture s/p mechanical fall Acute cystitis Hypertension Was on IV Rocephin, changed to meropenem. Urine culture now resulting ESBL. ID consulted - recommend 5 days of meropenem Blood cultures without growth Patient feeling better, tolerating diet Continue PO pain medication as needed Physical therapy evaluated the patient, recommend inpatient rehab, patient and daughter agreeable Continue home antihypertensives, blood pressure improving Will need 5 days of IV meropenem, midline placed on 07/14 Overall improving, awaiting insurance approval for inpatient rehab VTE: Lovenox Code: full Dispo: anticipate dc inpatient rehab, pending insurance authorization Discussed with daughter, would not want SNF
[2021-07-15] MEDS: ENOXAPARIN 40 MG/0.4 ML SQ SCH (16:27)
[2021-07-15] MEDS: DIFLUPREDNATE OPHTHALMIC 5 ML BOT EACH EYE SCH (21:01)
[2021-07-15] MEDS: ATORVASTATIN 20 MG TAB PO SCH (21:01)
[2021-07-15] MEDS: HYDRALAZINE HCL 20 MG/ML VIAL IV PRN (21:02)
[2021-07-16] MEDS: Meropenem 1 GM/100 ML BAG IV SCH ×3 (00:29→17:19)
[2021-07-16 05:31] LABS: BUN Blood Urea Nitrogen 19 mg/dL (7-18); Bicarbonate 29 mmol/L (21-32); Glucose Level 127 mg/dL (74-106); Magnesium 2.1 mg/dL (1.8-2.4); Potassium 4.1 mmol/L (3.5-5.1); Sodium Level 132 mmol/L (136-145)
--- NOTE | 2021-07-16 06:04 | P.PN ---
Date of Service: 07/16/21 Subjective: improving, pain is more controlled, working with PT Patient states she would be okay with going to a nursing home facility to continue physical therapy if needed ROS: 10 point review of systems otherwise negative Physical Exam General: Alert, NAD HEENT: Mucous membr. moist/pink Respiratory: Clear to auscultation bilaterally, Normal air movement Cardiovascular: No edema, Regular rate/rhythm, Normal S1 S2 Gastrointestinal: Soft and benign, Non-distended, No tenderness Neurological: Normal strength at 5/5 x4 extr Problem list L1 compression fracture s/p mechanical fall Acute cystitis, ESBL E. coli Hypertension Was on IV Rocephin, changed to meropenem. Urine culture now resulting ESBL. ID consulted - recommend 5 days of meropenem Blood cultures without growth Patient feeling better, tolerating diet Continue PO pain medication as needed Physical therapy evaluated the patient, recommend inpatient rehab, patient and daughter agreeable Patient continues to improve, is also agreeable to going to a nursing home facility for continued rehab Increased patient's Norvasc, with improvement Will need 5 days of IV meropenem, midline placed on 07/14 Overall improving, awaiting insurance approval for inpatient rehab VTE: Lovenox Code: full Dispo: anticipate dc in 2 days. 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 Daughter agreeable Time Spent Managing Pts Care (In Minutes): 30
[2021-07-16] MEDS: INSULIN -REGULAR HUMAN 50 UNIT/0.5 ML ML SQ SCH ×4 (07:30→20:35)
[2021-07-16] MEDS: hydroCHLOROthiazide 12.5 MG CAP PO SCH (08:10)
[2021-07-16] MEDS: lisinopriL 20 MG TAB PO SCH (08:11)
[2021-07-16] MEDS: AMLODIPINE 5 MG TAB PO SCH (08:11)
--- NOTE | 2021-07-16 10:02 | P.PN ---
Subjective Date of Service: 07/16/21 Primary Care Provider: Tobin Chief Complaint: compression fracture, UTI Patient seen examined at bedside, no acute events. Review of Systems 10-point ROS is otherwise unremarkable Physical Examination - Vital Signs Temperature: 99.0 F Blood Pressure: 142/67 Pulse: 100 Respirations: 23 Pulse Ox (%): 96 - Studies Laboratory Last Values WBC 11.30 K/uL (4.3-10.9) H D 07/13/21 05:30 RBC 4.72 M/uL (3.86-4.86) 07/13/21 05:30 Hgb 13.5 g/dL (12.0-15.0) 07/13/21 05:30 Hct 40.6 % (36.0-45.0) 07/13/21 05:30 MCV 86.2 fL (80-100) 07/13/21 05:30 MCH 28.6 pg (27.0-35.0) 07/13/21 05:30 MCHC 33.2 g/dL (32.0-36.0) 07/13/21 05:30 RDW 14.7 % (12.1-15.2) 07/13/21 05:30 Plt Count 140 K/uL (152-406) L 07/13/21 05:30 MPV 10.6 fL (7.6-11.3) 07/13/21 05:30 Neutrophils % 84.6 % (41.7-73.7) H 07/13/21 05:30 Lymphocytes % 11.9 % (15.3-44.8) L 07/13/21 05:30 Monocytes % 3.1 % (3.3-12.3) L 07/13/21 05:30 Eosinophils % 0.0 % (0-4.4) 07/13/21 05:30 Basophils % 0.4 % (0-1.3) 07/13/21 05:30 Absolute Neutrophils 9.6 K/uL (1.8-8.0) H 07/13/21 05:30 Absolute Lymphocytes 1.3 K/uL (0.7-4.9) 07/13/21 05:30 Absolute Monocytes 0.4 K/uL (0.1-1.3) 07/13/21 05:30 Absolute Eosinophils 0.0 K/uL (0-0.5) 07/13/21 05:30 Absolute Basophils 0.0 K/uL (0-0.5) 07/13/21 05:30 Platelet Estimate Adeq 07/12/21 20:00 Morphology Comment Not seen (NOT SEEN) 07/12/21 20:00 PT 12.7 SECONDS (9.5-12.5) H 07/12/21 20:00 INR 1.10 07/12/21 20:00 APTT 31.8 SECONDS (24.3-36.9) 07/12/21 20:00 Sodium 137 mmol/L (136-145) 07/13/21 05:30 Potassium 3.9 mmol/L (3.5-5.1) 07/13/21 05:30 Chloride 105 mmol/L (98-107) 07/13/21 05:30 Carbon Dioxide 26 mmol/L (21-32) 07/13/21 05:30 BUN 14 mg/dL (7-18) 07/13/21 05:30 Creatinine 0.62 mg/dL (0.55-1.3) 07/13/21 05:30 Whole Bld Creatinine 0.7 mg/dL (0.6-1.3) 07/12/21 19:43 Estimated GFR > 90 mL/min (=/>90) 07/13/21 05:30 Glucose 133 mg/dL (74-106) H 07/13/21 05:30 POC Glucose 88 mg/dL (65-120) 07/13/21 11:55 Lactic Acid 0.9 mmol/L (0.4-2.0) 07/12/21 22:47 Calcium 8.6 mg/dL (8.5-10.1) 07/13/21 05:30 Phosphorus 3.4 mg/dL (2.5-4.9) 07/13/21 05:30 Magnesium 2.1 mg/dL (1.8-2.4) 07/13/21 05:30 Total Bilirubin 0.4 mg/dL (0.2-1.0) 07/13/21 05:30 Direct Bilirubin < 0.1 mg/dL (0-0.2) 07/12/21 20:00 AST 19 U/L (15-37) 07/13/21 05:30 ALT 21 U/L (12-78) 07/13/21 05:30 Alkaline Phosphatase 67 U/L (45-117) 07/13/21 05:30 Rapid Troponin I < 0.02 ng/mL (0.0-0.045) 07/12/21 20:00 NT-Pro-B Natriuret Pep 172 pg/mL (<450) 07/12/21 20:00 Serum Total Protein 7.6 g/dL (6.4-8.2) 07/13/21 05:30 Albumin 3.4 g/dL (3.4-5.0) 07/13/21 05:30 Globulin 4.2 g/dL (2.3-3.5) H 07/13/21 05:30 Albumin/Globulin Ratio 0.8 (1.1-1.8) L 07/13/21 05:30 25-OH Vitamin D Total 28.3 ng/mL (30-100) L 07/13/21 05:30 Procalcitonin < 0.05 ng/mL (<0.050) 07/12/21 22:51 TSH 1.220 uIU/mL (0.360-3.740) 07/13/21 05:30 Free T4 1.18 ng/dL (0.76-1.46) 07/13/21 05:30 PTH Intact 50.8 pg/mL (18.4-80.1) 07/13/21 05:30 Urine pH 5.5 (5.0-7.0) 07/12/21 21:37 Ur Specific [place] 1.015 (1.005-1.030) 07/12/21 21:37 Glucose (UA)(Auto) Negative (Negative) 07/12/21 21:37 Urine Ketones 1+ (Negative) H 07/12/21 21:37 Urine Blood 2+ (Negative) H 07/12/21 21:37 Urine Nitrite Positive (Negative) H 07/12/21 21:37 Ur Leukocyte Esterase Negative (Negative) 07/12/21 21:37 Urine RBC <5 /HPF (NONE SEEN) 07/12/21 21:37 Urine WBC <5 /HPF (<5) 07/12/21 21:37 Ur Squamous Epith Cells <5 /HPF (NONE SEEN) 07/12/21 21:37 Ur Urothelial Cells <5 /HPF (NONE SEEN) 07/12/21 21:37 Urine Bacteria >50 /HPF (<20) H 07/12/21 21:37 Urine Culture Reflexed Reflexed 07/12/21 21:37 Urine Total Protein Negative (Negative) 07/12/21 21:37 SARS-CoV-2 Rap RNA(RT-PCR) Negative (NEGATIVE) 07/13/21 01:25 Smear Scan Ok (OK) 07/12/21 20:00 Assessment And Plan - Plan Physical Exam: General: Alert, In no apparent distress, Oriented x3 HEENT: Atraumatic, PERRLA Neck: Supple, 2+ carotid pulse no bruit, JVD not distended Respiratory: Clear to auscultation bilaterally, Normal air movement Cardiovascular: No edema, Normal pulses Capillary refill: <2 Seconds Gastrointestinal: Normal bowel sounds, Soft and benign Musculoskeletal: No clubbing, No swelling, No contractures Integumentary: No rashes, No breakdown, No significant lesion Conclusions/Impression: Assessment/plan UTI Urine culture performed on 07/12 growing multi-drug resistant ESBL producing E coli. Recommend continuing meropenem for 5-7 days. Patient has midline placed. Protein caloric malnutrition Recommend supplemental Ensure protein drinks. Vertebral compression fracture/hypertension/hyperlipidemia Medical management per primary team Plan of care discussed with Dr. Turner. Thank you for consultation.
[2021-07-16] MEDS: ENOXAPARIN 40 MG/0.4 ML SQ SCH (17:19)
[2021-07-16] MEDS: DIFLUPREDNATE OPHTHALMIC 5 ML BOT EACH EYE SCH (20:39)
[2021-07-16] MEDS: ATORVASTATIN 20 MG TAB PO SCH (20:40)
[2021-07-17] MEDS: Meropenem 1 GM/100 ML BAG IV SCH ×3 (01:15→17:52)
--- NOTE | 2021-07-17 06:04 | P.PN ---
Date of Service: 07/17/21 Subjective: Continues to improve, has not required pain medication in 2 days ambulating with PT, no dysuria afebrile ROS: 10 point review of systems otherwise negative Physical Exam General: Alert, NAD HEENT: Mucous membr. moist/pink Respiratory: Clear to auscultation bilaterally, Normal air movement Cardiovascular: No edema, Regular rate/rhythm, Normal S1 S2 Gastrointestinal: Soft and benign, Non-distended, No tenderness Neurological: Normal strength at 5/5 x4 extr Problem list L1 compression fracture s/p mechanical fall Acute cystitis, ESBL E. coli Hypertension Was on IV Rocephin, changed to meropenem. Urine culture now resulting ESBL. ID consulted - recommend 5 days of meropenem Blood cultures without growth Patient feeling better, tolerating diet Physical therapy evaluated the patient, recommend inpatient rehab, patient and daughter agreeable Patient continues to improve, good candidate for rehab Increased patient's Norvasc, with improvement Will need 5 days of IV meropenem, midline placed on 07/14 Overall improving, awaiting insurance approval for inpatient rehab VTE: Lovenox Code: full Dispo: anticipate dc to rehab. Awaiting insurance approval for inpatient rehab Time Spent Managing Pts Care (In Minutes): 30
[2021-07-17] MEDS: INSULIN -REGULAR HUMAN 50 UNIT/0.5 ML ML SQ SCH ×2 (07:30→11:30)
[2021-07-17] MEDS: lisinopriL 20 MG TAB PO SCH (09:58)
[2021-07-17] MEDS: hydroCHLOROthiazide 12.5 MG CAP PO SCH (09:58)
[2021-07-17] MEDS: AMLODIPINE 5 MG TAB PO SCH (09:58)
--- NOTE | 2021-07-17 10:41 | P.PN ---
Subjective Date of Service: 07/17/21 Primary Care Provider: Tobin Chief Complaint: compression fracture, UTI Patient seen examined at bedside, denies nausea/vomiting/diarrhea. Reporting slight tenderness to midline insertion site, could area clean dry and intact with no clinical signs of infection. Review of Systems 10-point ROS is otherwise unremarkable Physical Examination - Vital Signs Temperature: 97.9 F Blood Pressure: 146/62 Pulse: 102 Respirations: 17 Pulse Ox (%): 95 - Studies Laboratory Last Values WBC 11.30 K/uL (4.3-10.9) H D 07/13/21 05:30 RBC 4.72 M/uL (3.86-4.86) 07/13/21 05:30 Hgb 13.5 g/dL (12.0-15.0) 07/13/21 05:30 Hct 40.6 % (36.0-45.0) 07/13/21 05:30 MCV 86.2 fL (80-100) 07/13/21 05:30 MCH 28.6 pg (27.0-35.0) 07/13/21 05:30 MCHC 33.2 g/dL (32.0-36.0) 07/13/21 05:30 RDW 14.7 % (12.1-15.2) 07/13/21 05:30 Plt Count 140 K/uL (152-406) L 07/13/21 05:30 MPV 10.6 fL (7.6-11.3) 07/13/21 05:30 Neutrophils % 84.6 % (41.7-73.7) H 07/13/21 05:30 Lymphocytes % 11.9 % (15.3-44.8) L 07/13/21 05:30 Monocytes % 3.1 % (3.3-12.3) L 07/13/21 05:30 Eosinophils % 0.0 % (0-4.4) 07/13/21 05:30 Basophils % 0.4 % (0-1.3) 07/13/21 05:30 Absolute Neutrophils 9.6 K/uL (1.8-8.0) H 07/13/21 05:30 Absolute Lymphocytes 1.3 K/uL (0.7-4.9) 07/13/21 05:30 Absolute Monocytes 0.4 K/uL (0.1-1.3) 07/13/21 05:30 Absolute Eosinophils 0.0 K/uL (0-0.5) 07/13/21 05:30 Absolute Basophils 0.0 K/uL (0-0.5) 07/13/21 05:30 Platelet Estimate Adeq 07/12/21 20:00 Morphology Comment Not seen (NOT SEEN) 07/12/21 20:00 PT 12.7 SECONDS (9.5-12.5) H 07/12/21 20:00 INR 1.10 07/12/21 20:00 APTT 31.8 SECONDS (24.3-36.9) 07/12/21 20:00 Sodium 137 mmol/L (136-145) 07/13/21 05:30 Potassium 3.9 mmol/L (3.5-5.1) 07/13/21 05:30 Chloride 105 mmol/L (98-107) 07/13/21 05:30 Carbon Dioxide 26 mmol/L (21-32) 07/13/21 05:30 BUN 14 mg/dL (7-18) 07/13/21 05:30 Creatinine 0.62 mg/dL (0.55-1.3) 07/13/21 05:30 Whole Bld Creatinine 0.7 mg/dL (0.6-1.3) 07/12/21 19:43 Estimated GFR > 90 mL/min (=/>90) 07/13/21 05:30 Glucose 133 mg/dL (74-106) H 07/13/21 05:30 POC Glucose 88 mg/dL (65-120) 07/13/21 11:55 Lactic Acid 0.9 mmol/L (0.4-2.0) 07/12/21 22:47 Calcium 8.6 mg/dL (8.5-10.1) 07/13/21 05:30 Phosphorus 3.4 mg/dL (2.5-4.9) 07/13/21 05:30 Magnesium 2.1 mg/dL (1.8-2.4) 07/13/21 05:30 Total Bilirubin 0.4 mg/dL (0.2-1.0) 07/13/21 05:30 Direct Bilirubin < 0.1 mg/dL (0-0.2) 07/12/21 20:00 AST 19 U/L (15-37) 07/13/21 05:30 ALT 21 U/L (12-78) 07/13/21 05:30 Alkaline Phosphatase 67 U/L (45-117) 07/13/21 05:30 Rapid Troponin I < 0.02 ng/mL (0.0-0.045) 07/12/21 20:00 NT-Pro-B Natriuret Pep 172 pg/mL (<450) 07/12/21 20:00 Serum Total Protein 7.6 g/dL (6.4-8.2) 07/13/21 05:30 Albumin 3.4 g/dL (3.4-5.0) 07/13/21 05:30 Globulin 4.2 g/dL (2.3-3.5) H 07/13/21 05:30 Albumin/Globulin Ratio 0.8 (1.1-1.8) L 07/13/21 05:30 25-OH Vitamin D Total 28.3 ng/mL (30-100) L 07/13/21 05:30 Procalcitonin < 0.05 ng/mL (<0.050) 07/12/21 22:51 TSH 1.220 uIU/mL (0.360-3.740) 07/13/21 05:30 Free T4 1.18 ng/dL (0.76-1.46) 07/13/21 05:30 PTH Intact 50.8 pg/mL (18.4-80.1) 07/13/21 05:30 Urine pH 5.5 (5.0-7.0) 07/12/21 21:37 Ur Specific [place] 1.015 (1.005-1.030) 07/12/21 21:37 Glucose (UA)(Auto) Negative (Negative) 07/12/21 21:37 Urine Ketones 1+ (Negative) H 07/12/21 21:37 Urine Blood 2+ (Negative) H 07/12/21 21:37 Urine Nitrite Positive (Negative) H 07/12/21 21:37 Ur Leukocyte Esterase Negative (Negative) 07/12/21 21:37 Urine RBC <5 /HPF (NONE SEEN) 07/12/21 21:37 Urine WBC <5 /HPF (<5) 10/10/21 21:37 Ur Squamous Epith Cells <5 /HPF (NONE SEEN) 07/12/21 21:37 Ur Urothelial Cells <5 /HPF (NONE SEEN) 07/12/21 21:37 Urine Bacteria >50 /HPF (<20) H 07/12/21 21:37 Urine Culture Reflexed Reflexed 07/12/21 21:37 Urine Total Protein Negative (Negative) 07/12/21 21:37 SARS-CoV-2 Rap RNA(RT-PCR) Negative (NEGATIVE) 07/13/21 01:25 Smear Scan Ok (OK) 07/12/21 20:00 Assessment And Plan - Plan Physical Exam: General: Alert, In no apparent distress, Oriented x3 HEENT: Atraumatic, PERRLA Neck: Supple, 2+ carotid pulse no bruit, JVD not distended Respiratory: Clear to auscultation bilaterally, Normal air movement Cardiovascular: No edema, Normal pulses Capillary refill: <2 Seconds Gastrointestinal: Normal bowel sounds, Soft and benign Musculoskeletal: No clubbing, No swelling, No contractures Integumentary: No rashes, No breakdown, No significant lesion Conclusions/Impression: Assessment/plan UTI Urine culture performed on 07/12 growing multi-drug resistant ESBL producing E coli. Recommend continuing meropenem for 5-7 days. Patient has midline placed. Protein caloric malnutrition Recommend supplemental Ensure protein drinks. Vertebral compression fracture/hypertension/hyperlipidemia Medical management per primary team Plan of care discussed with Dr. Turner. Thank you for consultation.
[2021-07-17] MEDS: ENOXAPARIN 40 MG/0.4 ML SQ SCH (17:53)
[2021-07-17] MEDS: ATORVASTATIN 20 MG TAB PO SCH (20:20)
[2021-07-17] MEDS: DIFLUPREDNATE OPHTHALMIC 5 ML BOT EACH EYE SCH (20:22)
[2021-07-18] MEDS: Meropenem 1 GM/100 ML BAG IV SCH ×3 (00:41→17:14)
[2021-07-18 05:36] LABS: Hematocrit 36.3 % (36.0-45.0); MPV 10.3 fL (7.6-11.3); RBC Red Blood Cell Count 4.24 M/uL (3.86-4.86)
[2021-07-18 05:49] LABS: BUN Blood Urea Nitrogen 22 mg/dL (7-18); Bicarbonate 30 mmol/L (21-32); Glucose Level 118 mg/dL (74-106); Magnesium 2.3 mg/dL (1.8-2.4); Potassium 4.1 mmol/L (3.5-5.1); Sodium Level 134 mmol/L (136-145)
--- NOTE | 2021-07-18 05:59 | P.PN ---
Date of Service: 07/18/21 Subjective: Continues to improve, ambulating better, not requiring opioid pain medication States with improvement, blood to go home, does not want to wait for inpatient rehab approval States spoke with family, and granddaughters may be able to help ROS: 10 point review of systems otherwise negative Physical Exam General: Alert, NAD HEENT: Mucous membr. moist/pink Respiratory: Clear to auscultation bilaterally, Normal air movement Cardiovascular: No edema, Regular rate/rhythm Gastrointestinal: Soft and benign, Non-distended, No tenderness Neurological: Normal strength at 5/5 x4 extr Problem list L1 compression fracture s/p mechanical fall Acute cystitis, ESBL E. coli Hypertension Was on IV Rocephin, changed to meropenem. Urine culture now resulting ESBL. ID consulted - recommend 5 days of meropenem -last day is tomorrow Blood cultures without growth Patient feeling better, tolerating diet Physical therapy evaluated the patient, recommend inpatient rehab, patient and daughter agreeable Patient continues to improve, good candidate for rehab Increased patient's Norvasc, with improvement Will need 5 days of IV meropenem, midline placed on 07/14 Overall improving, awaiting insurance approval for inpatient rehab VTE: Lovenox Code: full Dispo: Discharge home tomorrow after final dose of meropenem in the afternoon Time Spent Managing Pts Care (In Minutes): 30
[2021-07-18] MEDS: AMLODIPINE 5 MG TAB PO SCH (08:29)
[2021-07-18] MEDS: hydroCHLOROthiazide 12.5 MG CAP PO SCH (08:29)
[2021-07-18] MEDS: lisinopriL 20 MG TAB PO SCH (08:29)
[2021-07-18] MEDS: ENOXAPARIN 40 MG/0.4 ML SQ SCH (17:15)
[2021-07-18] MEDS: DIFLUPREDNATE OPHTHALMIC 5 ML BOT EACH EYE SCH (21:00)
[2021-07-18] MEDS: ATORVASTATIN 20 MG TAB PO SCH (21:59)
[2021-07-19] MEDS: Meropenem 1 GM/100 ML BAG IV SCH ×2 (01:12→08:45)
[2021-07-19] MEDS: lisinopriL 20 MG TAB PO SCH (08:43)
[2021-07-19] MEDS: hydroCHLOROthiazide 12.5 MG CAP PO SCH (08:45)
[2021-07-19] MEDS: AMLODIPINE 5 MG TAB PO SCH (08:46)
[2021-07-19 12:37] VITALS: BP 129/61; TEMP 96.9
[2021-07-19 13:48] VITALS: O2SAT 98
--- NOTE | 2021-07-19 14:06 | P.DS ---
Admission Date: 07/13/21 Discharge Date: 07/19/21 Primary Care Provider: Tobin Disposition: ROUTINE DISCHARGE Discharge Condition: GOOD Reason for Admission: compression fracture, UTI Consultations: AYESHA - Dr. Turenr Procedures: CXR (07/12): FINDINGS: Lungs are clear. Interstitial pattern matches comparison. Heart and vasculature are normal. No measurable pleural effusion and no pneumothorax. No acute bony abnormality seen. No acute aortic findings suspected. IMPRESSION: No acute cardiopulmonary process. No significant change from comparison study. CT head/C-spine/chest/abdomen/pelvis (07/12): FINDINGS: No intracranial hemorrhage, mass or edema. No midline shift or abnormal fluid collection. Moderate atrophy and chronic ischemic changes are present. Ventricles are in proportion to the amount of volume loss. Mastoid air cells and paranasal sinuses are clear. No skull fracture. CT cervical spine imaging shows normal height. Normal alignment of the vertebrae. C5-6, C6-7 and C7-T1 disc space narrowing present. Prominent facet joint degenerative changes are present at multiple levels. Bony foraminal encroachment changes are present on the right at C5-6 and bilateral at C6-7. No paraspinal mass or hematoma seen. Central canal detail is inherently limited. Concerns for traumatic disc herniation or traumatic cord injury can be further addressed with MR imaging. Trace amount of airspace opacification present in the subpleural posterior midportion left lower lobe. This could be atelectasis. With fall history, punctate focus of pulmonary contusion is possible. No mediastinal hematoma and the aorta and pulmonary arteries are unremarkable. No chest will mass or abnormal axillary finding. No rib fractures are present. No acute thoracic vertebral body finding. CT abdomen and pelvis show no injury to solid abdominal viscera. Gallbladder and biliary tree are unremarkable. No bowel injury or significant finding. No free air, free fluid or abnormal stranding. No urinary bladder abnormality. Very minimal loss in height in the superior endplate L1. There does appear to be an acute fracture line parallel to the superior endplate. Posterior wall height is preserved. Overall loss in height is approximately 10%. Pedicles are intact. No pelvic fracture. No significant vascular finding. IMPRESSION: No significant CT Head finding. Patient has moderate severity atrophy and chronic ischemic change. No significant CT Cervical Spine finding. Patient has moderate severity mid and lower cervical spine degenerative change. No significant CT chest finding. There is punctate focus of atelectasis versus very minimal pulmonary contusion posterior left lower lobe. No associated rib fracture or pleural abnormality. No traumatic injury to the soft tissues of the abdomen or pelvis. Suspected 10% compression fracture of the superior endplate L1 with posterior wall height preserved. Correlation is needed with localizing symptoms. MRI lumbar spine (07/13): FINDINGS: An acute fracture involves the superior endplate of the L1 vertebral body. Surrounding edema is present. Compression of the vertebral body 10%. No retropulsion of fracture fragment into the spinal canal. Remainder of the lumbar spine unremarkable. IMPRESSION: Acute fracture L1 vertebral body with mild compression Problem list L1 compression fracture s/p mechanical fall Acute cystitis, ESBL E. coli Hypertension Brief History of Present Illness: 81 yo F with HTN, HLD who presents wafter a fall. She was doing laundry and whe nshe stood up she felt dizzy and fell backwards and hit her head. She did not lose consciousness. She then had severe lower back pain and nausea, and she received 100 mcg of fentanyl by EMS. Pain now markedly improved. Denies vomiting, confusion, urinary symptoms. Per her daughter, she has been falling a lot lately. A week ago she slipped and fell at the bank after it rained. WBC 16.6. UA positive for nitrites. CT Traumogram: Suspected 10% compression fracture of the superior endplate L1 with posterior wall height preserved. Hospital Course: Patient was found to have mild L1 compression fracture in the ED causing her pain. Work-up revealed grossly positive UA. She was empirically started on IV Rocephin. Urine culture grew ESBL E. coli. Infectious disease was consulted, blood cultures remain negative. ID recommended 5 days of IV meropenem. Patient had gradual improvement of her pain and ambulation while working with physical therapy. Physical therapy recommended inpatient rehab, which patient and family agreed. During the multiple days we are waiting to hear back from insurance authorization, patient had gradual improvement in her ambulation, and no longer required pain medication. She completed her 5 days of IV meropenem and was feeling better/safe to be discharged home. She was deemed stable and subsequently discharged home. She will have some family members that will help her. She did not want home health or home physical therapy. Follow-up with PCP in 3 to 5 days. She was hypertensive throughout her hospitalization, her Norvasc was increased from 5 mg to 10 mg with improvement. Vital Signs/Physical Exam: Physical Exam General: Alert, NAD HEENT: Mucous membr. moist/pink Respiratory: Clear to auscultation bilaterally, Normal air movement Cardiovascular: No edema, Regular rate/rhythm Gastrointestinal: Soft and benign, Non-distended, No tenderness Neurological: Normal strength at 5/5 x4 extr, normal speech, normal affect Temp Pulse Resp BP Pulse Ox 96.9 F 75 18 129/61 97 07/19/21 12:00 07/19/21 12:00 07/19/21 12:00 07/19/21 12:00 07/19/21 12:00 Laboratory Data at Discharge: WBC 7.50 K/uL (4.3-10.9) 07/18/21 04:57 Hgb 12.4 g/dL (12.0-15.0) 07/18/21 04:57 Hct 36.3 % (36.0-45.0) 07/18/21 04:57 Plt Count 179 K/uL (152-406) 07/18/21 04:57 PT 12.7 SECONDS (9.5-12.5) H 07/12/21 20:00 INR 1.10 07/12/21 20:00 APTT 31.8 SECONDS (24.3-36.9) 07/12/21 20:00 Sodium 134 mmol/L (136-145) L 07/18/21 04:57 Potassium 4.1 mmol/L (3.5-5.1) 07/18/21 04:57 BUN 22 mg/dL (7-18) H 07/18/21 04:57 Creatinine 0.58 mg/dL (0.55-1.3) 07/18/21 04:57 Glucose 118 mg/dL (74-106) H 07/18/21 04:57 Phosphorus 3.4 mg/dL (2.5-4.9) 07/13/21 05:30 Magnesium 2.3 mg/dL (1.8-2.4) 07/18/21 04:57 Total Bilirubin 0.4 mg/dL (0.2-1.0) 07/13/21 05:30 AST 19 U/L (15-37) 07/13/21 05:30 ALT 21 U/L (12-78) 07/13/21 05:30 Alkaline Phosphatase 67 U/L (45-117) 07/13/21 05:30 Home Medications: Simvastatin [Zocor*] 40 mg PO BEDTIME 03/23/16 Difluprednate [Durezol 0.05%] 1 drops EACH EYE BEDTIME 07/13/21 Lisinopril/Hydrochlorothiazide [Lisinopril-Hctz 20-12.5 mg Tab] 1 tab PO DAILY 07/13/21 Amlodipine [Norvasc*] 10 mg PO DAILY 30 Days #30 tab 07/19/21 New Medications: Amlodipine [Norvasc*] 10 mg PO DAILY 30 Days #30 tab Diet: AHA Activity: Ad shweta Followup: NONE,NONE [Primary Care Provider] - Time spent managing pt's care (in minutes): 45
== END 2021-07-19 14:10 | disposition home or self-care (01) | DRG 552 ==
LOC: ER 18:37 → ERHOLD 21:50 → 2ND 07-13 03:49 → OBSVTOIN 07-13 13:31
PROVIDERS: ADMIT Internal Medicine; ATTEND Internal Medicine
DX: S32.019A Unspecified fracture of first lumbar vertebra, initial encounter for closed fracture (principal); N30.00 Acute cystitis without hematuria; Z16.12 Extended spectrum beta lactamase (ESBL) resistance; E46 Unspecified protein-calorie malnutrition; W01.0XXA Fall on same level from slipping, tripping and stumbling without subsequent striking against object, initial encounter; Y92.510 Bank as the place of occurrence of the external cause; B96.20 Unspecified Escherichia coli [E. coli] as the cause of diseases classified elsewhere; I10 Essential (primary) hypertension; Z68.26 Body mass index [BMI] 26.0-26.9, adult; Z20.822 Contact with and (suspected) exposure to COVID-19
CPT/HCPCS: 36415; 70450; 71045; 71260; 72125; 72148; 74177; 80048; 80053; 80076; 81003; 81015; 82306; 82565; 82947; 83605; 83735; 83880; 83970; 84100; 84145; 84439; 84443; 84484; 85025; 85027; 85610; 85730; 87040; 87077; 87086; 87088; 87186; 93005; 94760; 96374; 96375; 97116; 97161; 97165; 97530; 99285; G0378; J0360; J0696; J1650; J2185; J2270; J2405; J2550; Q9967; U0003

== ENCOUNTER 2022-03-28 09:14 | Observation (INO) | payer OTHER ==
--- OUTSIDE RECORDS SUMMARY | 2022-03-28 09:16 | XMS REPORT | Continuity of Care Document ---
:1940 Author Organization [facility] Address [address] [place] [address] Dr. Stovall [address] [place] [id number] Care Team Providers Name Role Phone Michael-Mbayo_A_AH Attending Clinician Unavailable Michael-Mbayo_A_AH Admitting Clinician Unavailable Payers Payer Name Policy Type Policy Number Effective Date Expiration Date S ource [facility] - [id number] 2019 [facility] 00:00:00 (MEDICARE REPLACEMENT/ADVANT AGE - HMO) Problems This patient has no known problems. Allergies, Adverse Reactions, Alerts This patient has no known allergies or adverse reactions. Medications This patient has no known medications. Procedures This patient has no known procedures. Encounters Start End Encounter Admission Attending Care Care Encounter Source Date/Time Date/Time Type Type Clinicians Facility Department ID 2019-11-29 2019-11-29 Outpatient Michael-Mbayo VFP VFP [id number] [facility] 01:06:00 01:06:00 _A_AH [id number] Family Practic e 2019-11-29 2019-11-29 Outpatient Michael-Mbayo VFP VFP [id number] [facility] 01:06:00 01:06:00 _A_AH [id number] Family Practic e 2019-11-29 2019-11-29 Outpatient Michael-Mbayo VFP VFP [id number] [facility] 01:06:00 01:06:00 _A_AH [id number] Family Practic e Results This patient has no known results.
[2022-03-28] MEDS ORDERED: MORPHINE 4 MG/ML SYR ONE (09:49)
[2022-03-28] MEDS ORDERED: ONDANSETRON 4 MG/2 ML VIAL ONE ×2 (09:49→10:15)
[2022-03-28] MEDS ORDERED: NA CHLORIDE 0.9% 1,000 ML ONE (09:49)
[2022-03-28 09:59] LABS: Absolute Lymphocytes (CBC) 1.2 K/uL (0.7-4.9); Lymphocytes % 11.8 % (15.3-44.8); MCV 86.8 fL (80-100); MPV 10.7 fL (7.6-11.3); RBC Red Blood Cell Count 4.95 M/uL (3.86-4.86)
[2022-03-28 10:35] LABS: Albumin 3.7 g/dL (3.4-5.0); Bilirubin Total 0.4 mg/dL (0.2-1.0); Potassium 3.2 mmol/L (3.5-5.1); Troponin High Sensitivity 6.7 pg/mL (<58.9)
--- NOTE | 2022-03-28 11:21 | RAD REPORT ---
EXAM DESCRIPTION: CT - Head Brain Wo Cont - 03/28/2022 10:23 am CLINICAL HISTORY: Hypertensive emergency COMPARISON: Head C Spine Cap W Con dated 07/12/2021 TECHNIQUE: Axial 5 mm thick images of the head were obtained without IV contrast. All CT scans are performed using dose optimization technique as appropriate and may include automated exposure control or mA/KV adjustment according to patient size. FINDINGS: No intracranial hemorrhage, mass, edema or shift of mid-line structures. No acute cortical level infarction. No cortical edema or sulcal effacement. Patient has moderate severity atrophy for age. Ventricles are prominent, appear to be in proportion to the amount of volume loss, and are uncha nged from July 2021. Moderate severity chronic ischemic change seen in the cerebral hemispheres. N o abnormal extra-axial fluid collections. Mastoid air cells and visualized portions of the paranasal sinuses are clear. No acute bony findings. IMPRESSION: Negative non-contrast CT head examination for acute finding. Patient has atrophy and chronic ischemic changes are stable from July 2021.
--- NOTE | 2022-03-28 11:31 | RAD REPORT ---
EXAM DESCRIPTION: CT - Angio Aorta For Dissection - 03/28/2022 10:33 am CLINICAL HISTORY: abd pain radiate to back, high bp COMPARISON: Chest film same date, chest film July 2021 TECHNIQUE: Dynamically enhanced 3 mm thick images of the chest, abdomen, and upper pelvis were obtai nikki during administration of approximately 150mL Isovue 370 IV contrast. Sagittal and coronal reconst ruction images were generated using MIP and reviewed. Exam utilizes a protocol to evaluate entire cou rse of the aorta. All CT scans are performed using dose optimization technique as appropriate and may include automated exposure control or mA/KV adjustment according to patient size. FINDINGS: Aorta is normal in diameter with no dissection or other acute aortic findings. Reconstruct ion images show no significant findings. Patient has aortic atherosclerotic calcifications. These are prominent circumferential calcifications in the infrarenal aorta. No centrally displaced calcificati ons. Aortic arch is 3 vessel configuration. There is approximately 50% stenosis of the proximal few cm of the left subclavian artery. Prominent calcifications extend into the common iliac arteries. Left common iliac artery stenosis is estimated at 70%. No significant right common iliac artery stenosis seen. No external iliac artery st enoses. No pulmonary artery abnormality seen. Moderate severity coronary artery calcifications are present. T here is no cardiomegaly or pericardial effusion. No mass or infiltrate in the lung parenchyma. No pleural thickening, pleural effusion or pneumothorax . No abnormal mediastinal or hilar mass or lymphadenopathy seen. No chest wall mass or abnormal axillar y lymphadenopathy. The celiac and superior mesenteric arteries are widely patent with no significant atherosclerotic michael cifications identified near the origin. SMA calcifications are seen 6-8 cm from the origin not believ ed to cause significant stenosis. Inferior mesenteric artery is patent. Single renal artery supply ea ch kidney. There are significant calcifications at the left renal artery origin likely causing 50% or slightly greater stenosis. Right renal artery stenosis is not seen. Solid abdominal viscera and bowel show no significant findings. Simple cysts of the right kidney are noted. Largest is 4.3 cm. There is no asymmetry of function of the kidneys due to the suspected sheldon l artery stenosis. No uterine or ovarian abnormality seen. No mass or abnormal lymphadenopathy. No free air, free fluid or inflammatory stranding. No urinary bladder abnormality. Left inguinal surgical changes noted. Small fat only right inguinal hernia. Disc and bone degenerative changes are present. No acute or pathologic bone process seen. IMPRESSION: Negative CT scan of the aorta for aneurysm, dissection or acute finding. Prominent aorti c wall calcifications are present without stenosis. Significant stenosis of the left common iliac artery estimated at 70%. Significant origin calcifications left renal arteries suspected because 50% or slightly greater steno sis. Approximately 50% stenosis of the left subclavian artery proximal few cm. No mesenteric artery significant finding. No significant right renal artery finding. No other significant findings on chest, abdomen and upper pelvis examination.
--- NOTE | 2022-03-28 11:37 | RAD REPORT ---
EXAM DESCRIPTION: RAD - Chest Single View - 03/28/2022 10:51 am CLINICAL HISTORY: hypertension COMPARISON: Portable 07/12/2021 TECHNIQUE: AP portable chest image was obtained 03/28/2022 10:51 am . FINDINGS: Lung volumes are low. No acute lung parenchymal process seen. Interstitial pattern matches comparison. Left pericardial fat pad is seen. Heart and vasculature are normal. No measurable pleura l effusion and no pneumothorax. No acute bony abnormality seen. No acute aortic findings suspected. IMPRESSION: No acute cardiopulmonary process. No significant change from comparison study.
[2022-03-28] MEDS ORDERED: HYDRALAZINE HCL 20 MG/ML VIAL ONE (11:48)
[2022-03-28] MEDS ORDERED: POTASSIUM CL SA 10 MEQ TAB PO ONE (11:49)
[2022-03-28 13:47] LABS: Urine Blood Trace-intact (Negative); Urine Glucose Negative (Negative); Urine Protein 2+ (Negative); Urine Specific Gravity >=1.030 (1.005-1.030); Urine pH 5.5 (5.0-7.0)
[2022-03-28 14:17] LABS: Urine Bacteria <20 /HPF (<20); Urine RBC <5 /HPF (NONE SEEN)
[2022-03-28] MEDS ORDERED: ONDANSETRON 4 MG/2 ML VIAL IV PRN (14:22)
--- NOTE | 2022-03-28 14:27 | P.HP ---
Certification for Inpatient Patient admitted to: Observation With expected LOS: >2 Midnights Practitioner: I am a practitioner with admitting privileges, knowledge of patient current condition, hospital course, and medical plan of care. Services: Services provided to patient in accordance with Admission requirements found in Title 42 Section 412.3 of the Code of Federal Regulations Patient History Date of Service: 03/28/22 Reason for admission: Hypertensive urgency, low back pain, nausea and vomiting History of Present Illness: 81-year-old female patient with medical history significant for hypertension, hyperlipidemia, history of coronary artery disease status post stent placement was evaluated in the emergency room for episode of low back pain. She reported this pain started before coming to the emergency room today was rated 8 out of 10 in intensity. No issues with chest pain, shortness of breath, dizziness. However she did have episode of nausea. She was worked up in the ER and was found to have severely elevated blood pressure with systolic over 200 so she was given pain control for pink in the lower back and was also given antihypertensive medication. She was asked to be evaluated for inpatient management because of hypertensive urgency. CTA of the aorta done in the emergency room revealed no acute dissection however there was significant mention of severe peripheral vascular disease with 70% stenosis in the left iliac artery and also 50% stenosis in the origin of the left renal artery. Allergies No Known Drug Allergies Allergy (Verified 03/23/16 16:28) Unknown No Known Allergies Allergy (Uncoded 03/31/16 08:32) Unknown Home Medications: Simvastatin [Zocor*] 40 mg PO BEDTIME 03/23/16 Difluprednate [Durezol 0.05%] 1 drops EACH EYE BEDTIME 07/13/21 Lisinopril/Hydrochlorothiazide [Lisinopril-Hctz 20-12.5 mg Tab] 1 tab PO DAILY 07/13/21 Amlodipine [Norvasc*] 10 mg PO DAILY 30 Days #30 tab 07/19/21 - Past Medical/Surgical History Diabetic: No -: HTN -: HLD -: cardiac stent - Social History Alcohol use: No CD- Drugs: No Caffeine use: Yes Review of Systems General: Malaise Eyes: Unremarkable ENT: Unremarkable Respiratory: Unremarkable Cardiovascular: Unremarkable Gastrointestinal: Unremarkable Genitourinary: Unremarkable Musculoskeletal: Back Pain Integumentary: Unremarkable Neurological: Unremarkable Physical Examination - Physical Exam General: Alert, Oriented x3 HEENT: Atraumatic, Normocephalic Neck: Supple Respiratory: Normal air movement Cardiovascular: Regular rate/rhythm, Normal S1 S2 Gastrointestinal: Soft and benign, Non-distended Musculoskeletal: No swelling Neurological: Normal speech, Normal strength at 5/5 x4 extr - Studies Laboratory Data (last 24 hrs) 03/28/22 09:30: Sodium 133 L, Potassium 3.2 L, BUN 16, Creatinine 0.72, Glucose 183 H, Total Bilirubin 0.4, AST 12 L, ALT 11 L, Alkaline Phosphatase 65, Lipase 265 03/28/22 09:30: WBC 10.3, Hgb 14.3, Hct 43.0, Plt Count 160 Assessment and Plan - Plan Hypertensive urgency: Patient has significantly available. Will continue ambulatory medication of amlodipine and start carvedilol. Will have as needed labetalol on board for management of systolic blood pressures more than 160 mmHg despite oral antihypertensive drugs. Follow symptomatology closely. History of coronary artery disease: Will continue statin therapy and antiplatelet drugs. Will rule out ACS with troponin trend Low back pain: Etiology yet to be fully determined. No significant disc herniation or vertebral fractures noted. Peripheral vascular disease: Multiple lesions noted in the peripheral arteries include the left Ilac artery, left subclavian artery and left renal artery. She will be evaluated by vascular surgeon and outpatient as these are not acutely occluded lesions. Prophylaxis: Lovenox for DVT prophylaxis CODE STATUS: Full code Disposition: We will control blood pressure and rule out ACS. Possible discharge in next 24 to 48 hours. - Advance Directives Does patient have a Living Will: No Does patient have a Durable POA for Healthcare: No
[2022-03-28] MEDS ORDERED: LABETALOL 20 MG/4ML SYRINGE IV PRN (14:39)
[2022-03-28] MEDS: AMLODIPINE 5 MG TAB PO SCH (15:00)
--- NOTE | 2022-03-28 15:27 | EDPHYS ---
Physician Documentation [facility] Name: Marsha Jacob Age: 81 yrs Sex: Female : 1940 Arrival Date: 03/28/2022 Time: 09:15 Bed 17 Private MD: ED Physician Festus Abreu HPI: 03/28 09:49 This 81 yrs old Female presents to ER via Wheelchair with complaints of ma2 Vomiting. 09:49 The patient presents to the emergency department with nausea, vomiting. Associated ma2 signs and symptoms: Pertinent negatives: belching, fever, flatulence, hematuria. Severity of symptoms: At their worst the symptoms were mild in the emergency department the symptoms are unchanged. The patient has not experienced similar symptoms in the past. Patient presents with lower abdominal pain, lower back pain distal to left lower back, denies focal weakness specifically there is no headache there is no focal weakness urinary incontinence or retention, patient does not have diarrhea or other symptoms. Of note she does not have a headache. Also has vomiting. 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 - Social history:: Smoking status: Patient denies any tobacco usage or history of. - Family history:: not pertinent. ROS: 09:49 Constitutional: Negative for fever, chills, and weight loss. ma2 09:49 All other systems are negative. Exam: 09:49 Constitutional: This is a well developed, well nourished patient who is awake, alert, ma2 and in no acute distress. Head/Face: Normocephalic, atraumatic. Eyes: Pupils equal round and reactive to light, extra-ocular motions intact. Lids and lashes normal. Conjunctiva and sclera are non-icteric and not injected. Cornea within normal limits. Periorbital areas with no swelling, redness, or edema. ENT: Nares patent. No nasal discharge, no septal abnormalities noted. Tympanic membranes are normal and external auditory canals are clear. Oropharynx with no redness, swelling, or masses, exudates, or evidence of obstruction, uvula midline. Mucous membranes moist. Neck: Trachea midline, no thyromegaly or masses palpated, and no cervical lymphadenopathy. Supple, full range of motion without nuchal rigidity, or vertebral point tenderness. No Meningismus. Chest/axilla: Normal chest wall appearance and motion. Nontender with no deformity. No lesions are appreciated. Cardiovascular: Regular rate and rhythm with a normal S1 and S2. No gallops, murmurs, or rubs. Normal PMI, no JVD. No pulse deficits. Respiratory: Lungs have equal breath sounds bilaterally, clear to auscultation and percussion. No rales, rhonchi or wheezes noted. No increased work of breathing, no retractions or nasal flaring. Abdomen/GI: Soft, non-tender, with normal bowel sounds. No distension or tympany. No guarding or rebound. No evidence of tenderness throughout. Back: No spinal tenderness. No costovertebral tenderness. Full range of motion. Skin: Warm, dry with normal turgor. Normal color with no rashes, no lesions, and no evidence of cellulitis. MS/ Extremity: Pulses equal, no cyanosis. Neurovascular intact. Full, normal range of motion. Neuro: Awake and alert, GCS 15, oriented to person, place, time, and situation. Cranial nerves II-XII grossly intact. Motor strength 5/5 in all extremities. Sensory grossly intact. Cerebellar exam normal. Normal gait. Vital Signs: 09:25 BP 222 / 73; Pulse 90; Resp 12; Temp 97.5(TE); Pulse Ox 100% on R/A; Weight 58.97 kg; vg1 Height 5 ft. 1 in. (154.94 cm); Pain 6/10; 10:30 BP 185 / 61; Pulse 77; Resp 15; Pulse Ox 100% ; jl7 11:12 BP 209 / 88; Pulse 77; Resp 15; Pulse Ox 98% ; jl7 13:36 BP 135 / 65; Pulse 106; Resp 15; Pulse Ox 98% ; jl7 14:00 BP 147 / 55; Pulse 96; Resp 16; Pulse Ox 99% ; jl7 15:00 BP 149 / 46; Pulse 96; Resp 17; Pulse Ox 98% ; jl7 15:27 BP 132 / 50; Pulse 101; Resp 19; Pulse Ox 100% ; jl7 16:42 BP 153 / 61; Pulse 101; Resp 15; Pulse Ox 97% ; jl7 09:25 Body Mass Index 24.56 (58.97 kg, 154.94 cm) vg1 MDM: 09:22 Patient medically screened. ma2 09:49 Differential diagnosis: pancreatitis, viral gastroenteritis, gastroenteritis. nm2 15:24 Data reviewed: vital signs, nurses notes. Counseling: I had a detailed discussion with ma the patient and/or guardian regarding: the historical points, exam findings, and any diagnostic results supporting the discharge/admit diagnosis, the presence of at least one elevated blood pressure reading (>120/80) during this emergency department visit, the need for outpatient follow up. Response to treatment: the patient's symptoms have markedly improved after treatment. 03/28 09:43 Order name: CBC with Diff; Complete Time: 11:30 [facility] 03/28 09:43 Order name: CMP; Complete Time: 11:30 [facility] 03/28 09:43 Order name: Lipase; Complete Time: 11:30 [facility] 03/28 09:43 Order name: Urine Microscopic Only [facility] 03/28 09:43 Order name: Troponin High Sensitivity; Complete Time: 11:30 [facility] 03/28 12:27 Order name: SARS-COV-2 RT PCR (Document "Date of Onset" if Symptomatic) [facility] 03/28 09:51 Order name: CT Head Brain wo Cont; Complete Time: 11:30 [facility] 03/28 09:51 Order name: Chest Single View XRAY; Complete Time: 11:57 [facility] 03/28 10:21 Order name: Angio Aorta For Dissection; Complete Time: 11:57 [facility] 03/28 13:47 Order name: Urine Dipstick-Ancillary; Complete Time: 13:51 [facility] 03/28 14:27 Order name: Lipid Profile [facility] 03/28 14:27 Order name: Lipid Profile [facility] 03/28 09:43 Order name: IV Saline Lock; Complete Time: 10:02 [facility] 03/28 09:43 Order name: Labs collected and sent; Complete Time: 10:02 [facility] 03/28 09:43 Order name: Urine Dipstick-Ancillary (obtain specimen); Complete Time: 10:02 [facility] 03/28 12:28 Order name: Urine Dipstick-Ancillary (obtain specimen); Complete Time: 13:57 jl7 03/28 14:27 Order name: Heart Healthy EDMS Administered Medications: 09:45 Drug: NS 0.9% 1000 ml Route: IV; Rate: 1 bolus; Site: right antecubital; jl7 12:00 Follow up: Response: No adverse reaction; IV Status: Completed infusion; IV Intake: jl7 1000ml 09:45 Drug: Zofran (Ondansetron) 4 mg Route: IVP; Site: right antecubital; jl7 10:00 Follow up: Response: No adverse reaction; Nausea unchanged jl7 09:47 Drug: morphine 4 mg Route: IVP; Infused Over: 4 mins; Site: right antecubital; jl7 10:15 Follow up: Response: No adverse reaction; Pain is decreased jl7 10:12 Drug: Zofran (Ondansetron) 4 mg Route: IVP; Site: right antecubital; jl7 10:30 Follow up: Response: No adverse reaction; Nausea is decreased jl7 11:45 Drug: hydrALAZINE 20 mg Route: IVP; Site: right antecubital; jl7 15:32 Follow up: Response: Blood pressure is lowered jl7 18:00 Not Given (Patient Refused): Potassium Chloride 40 mEq PO once jl7 Disposition Summary: 03/28/22 15:25 Hospitalization Ordered Hospitalization Status: Observation ma2 Provider: Gregory Babb Location: Telemetry/MedSurg (observation) ma2 Condition: Stable ma2 Problem: new ma2 Symptoms: are unchanged ma2 Bed/Room Type: Standard [facility] Room Assignment: 201(03/28/22 16:42) Diagnosis - Secondary hypertension, unspecified ma2 - Vomiting, unspecified ma2 Forms: - Medication Reconciliation Form ma2 - SBAR form ma2 Signatures: Dispatcher [employer] EDMS Ana Li RN RN Ken Dawkins RN RN jl7 Festus Abreu MD MD ma2 Garcia, Victoria RN RN vg1 Corrections: (The following items were deleted from the chart) 10:21 09:47 Abdomen Angio+CT.RAD.BRZ ordered. [facility] EDNH 16:42 15:26 ma2 dw
--- NOTE | 2022-03-28 15:27 | ER ---
Nurse's Notes [facility] Name: Marsha Jacob Age: 81 yrs Sex: Female : 1940 Arrival Date: 03/28/2022 Time: 09:15 Bed 17 Private MD: Diagnosis: Secondary hypertension, unspecified;Vomiting, unspecified Presentation: 03/28 09:25 Chief complaint: Patient's son or daughter states: nausea began last night with c/o vg1 back pain; pt vomited this morning about 2x; pt c/o ABD pain that radiates to back. 09:25 Coronavirus screen: Vaccine status: Patient reports being unvaccinated. Client denies vg1 travel out of the [place] in the last 14 days. Ebola Screen: Patient denies exposure to infectious person. Patient denies travel to an Ebola-affected area in the 21 days before illness onset. Initial Sepsis Screen: Does the patient meet any 2 criteria? No. Patient's initial sepsis screen is negative. Does the patient have a suspected source of infection? No. Patient's initial sepsis screen is negative. Risk Assessment: Do you want to hurt yourself or someone else? Patient reports no desire to harm self or others. Onset of symptoms was March 27, 2022. 09:25 Method Of Arrival: Wheelchair vg1 09:25 Acuity: OSCAR 2 vg1 Triage Assessment: 09:25 General: Appears uncomfortable, Behavior is cooperative. Pain: Complains of pain in vg1 back and abdomen. GI: Reports nausea, vomiting. 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 - Social history:: Smoking status: Patient denies any tobacco usage or history of. - Family history:: not pertinent. Screenin:36 Abuse screen: Denies threats or abuse. Denies injuries from another. Nutritional jl7 screening: No deficits noted. Tuberculosis screening: No symptoms or risk factors identified. Fall Risk IV access (20 points). Mental Status- Oriented to own ability (0 pts). Assessment: 09:36 General: Appears in no apparent distress. uncomfortable, ill, Behavior is calm, jl7 cooperative, appropriate for age. Pain: Complains of pain in epigastric area and left upper quadrant Pain radiates to back Pain began 1 day ago. Is continuous, Unable to use pain scale. Does not appear to understand pain scale. Patient appears to be grimacing, restless, FLACC scale score is 8 out of 10. Neuro: Level of Consciousness is awake, alert, obeys commands, Oriented to person, place, time, situation. Cardiovascular: Patient's skin is warm and dry. Rhythm is sinus rhythm. Respiratory: Airway is patent Respiratory effort is even, unlabored, Respiratory pattern is regular, symmetrical. GI: Abdomen is round non-distended, Stools are reported to be normal. Last BM was March 27, 2022. Reports nausea, vomiting. Derm: Skin is pink, warm \T\ dry. 11:30 Reassessment: ERD notified of BP, see MAR for oders. jl7 12:30 Reassessment: Patient appears in no apparent distress at this time. Patient and/or jl7 family updated on plan of care and expected duration. Pain level reassessed. Patient is alert, oriented x 3, equal unlabored respirations, skin warm/dry/pink. Patient states symptoms have improved. 13:30 Reassessment: Patient appears in no apparent distress at this time. No changes from jl7 previously documented assessment. Patient and/or family updated on plan of care and expected duration. Pain level reassessed. Patient is alert, oriented x 3, equal unlabored respirations, skin warm/dry/pink. 14:15 Reassessment: Pt laying in bed with eyes closed, respirations even and unlabored, no jl7 signs of distress noted at this time. Daughter remains at bedside. 15:30 Reassessment: Dr. Jacobs at bedside discussing results and POC. jl7 Vital Signs: 09:25 BP 222 / 73; Pulse 90; Resp 12; Temp 97.5(TE); Pulse Ox 100% on R/A; Weight 58.97 kg; vg1 Height 5 ft. 1 in. (154.94 cm); Pain 6/10; 10:30 BP 185 / 61; Pulse 77; Resp 15; Pulse Ox 100% ; jl7 11:12 BP 209 / 88; Pulse 77; Resp 15; Pulse Ox 98% ; jl7 13:36 BP 135 / 65; Pulse 106; Resp 15; Pulse Ox 98% ; jl7 14:00 BP 147 / 55; Pulse 96; Resp 16; Pulse Ox 99% ; jl7 15:00 BP 149 / 46; Pulse 96; Resp 17; Pulse Ox 98% ; jl7 15:27 BP 132 / 50; Pulse 101; Resp 19; Pulse Ox 100% ; jl7 16:42 BP 153 / 61; Pulse 101; Resp 15; Pulse Ox 97% ; jl7 09:25 Body Mass Index 24.56 (58.97 kg, 154.94 cm) vg1 ED Course: 09:15 Patient arrived in ED. as 09:18 Ken Leong RN is Primary Nurse. jl7 09:22 Festus Abreu MD is Attending Physician. ma2 09:25 Arm band placed on. vg1 09:32 Inserted saline lock: 20 gauge in right antecubital area, using aseptic technique. vg1 Blood collected. 09:33 Triage completed. vg1 09:36 Patient has correct armband on for positive identification. Placed in gown. Bed in low jl7 position. Call light in reach. Side rails up X2. Client placed on continuous cardiac and pulse oximetry monitoring. NIBP monitoring applied. 09:45 Initial lab(s) drawn, by va, sent to lab. jl7 10:24 CT Head Brain wo Cont In Process Unspecified. EDMS 10:35 Angio Aorta For Dissection In Process Unspecified. EDMS 10:53 Chest Single View XRAY In Process Unspecified. EDMS 13:10 COVID swab sent to lab. tm3 13:40 Urine collected: straight cath specimen, clear, Amount Returned: 200mL. tm3 13:40 Straight cath inserted, using sterile technique, 14 Fr. Specimen obtained. Returned jl7 clear yellow urine. Patient tolerated well. 15:25 Gregory Babb MD is Hospitalizing Provider. ma2 15:35 No provider procedures requiring assistance completed. Patient admitted, IV remains in jl7 place. intact, No redness/swelling at site. Administered Medications: 09:45 Drug: NS 0.9% 1000 ml Route: IV; Rate: 1 bolus; Site: right antecubital; jl7 12:00 Follow up: Response: No adverse reaction; IV Status: Completed infusion; IV Intake: jl7 1000ml 09:45 Drug: Zofran (Ondansetron) 4 mg Route: IVP; Site: right antecubital; jl7 10:00 Follow up: Response: No adverse reaction; Nausea unchanged jl7 09:47 Drug: morphine 4 mg Route: IVP; Infused Over: 4 mins; Site: right antecubital; jl7 10:15 Follow up: Response: No adverse reaction; Pain is decreased jl7 10:12 Drug: Zofran (Ondansetron) 4 mg Route: IVP; Site: right antecubital; jl7 10:30 Follow up: Response: No adverse reaction; Nausea is decreased jl7 11:45 Drug: hydrALAZINE 20 mg Route: IVP; Site: right antecubital; jl7 15:32 Follow up: Response: Blood pressure is lowered jl7 18:00 Not Given (Patient Refused): Potassium Chloride 40 mEq PO once jl7 Medication: 12:00 VIS not applicable for this client. jl7 Intake: 12:00 IV: 1000ml; Total: 1000ml. jl7 Outcome: 15:25 Decision to Hospitalize by Provider. maClarissa 18:01 Admitted to Med/surg accompanied by tech, via stretcher, room 201, with chart, Report jl7 called to MICHELINE Greer 18:01 Condition: stable 18:01 Discharge instructions given to patient, family, Instructed on the need for transfer, Demonstrated understanding of instructions. 18:02 Patient left the ED. jl7 Signatures: Dispatcher [employer] EDMS Smith Fields tm3 Sue Zepeda Jahala, RN RN jl7 Festus Abreu MD MD ma2 Mandy Esparza RN RN vg1 Corrections: (The following items were deleted from the chart) 11:12 11:02 BP 185 / 61; Pulse 77bpm; Resp 15bpm; Pulse Ox 100%; jl7 jl7
[2022-03-28] MEDS: INSULIN -REGULAR HUMAN 50 UNIT/0.5 ML ML SQ SCH ×2 (16:30→20:47)
[2022-03-28] MEDS: carvediloL 12.5 MG TAB PO SCH (18:00)
[2022-03-28] MEDS: ENOXAPARIN 40 MG/0.4 ML SQ SCH (18:25)
[2022-03-28 21:00] VITALS: BMI 24.0
[2022-03-28] MEDS: ONDANSETRON 4 MG/2 ML VIAL IV PRN (22:47)
[2022-03-29] MEDS: ONDANSETRON 4 MG/2 ML VIAL IV PRN ×4 (04:20→22:06)
[2022-03-29] MEDS: carvediloL 12.5 MG TAB PO SCH ×2 (05:53→17:16)
[2022-03-29 06:01] LABS: Magnesium 2.1 mg/dL (1.8-2.4); Phosphorus 3.1 mg/dL (2.5-4.9); Potassium 3.3 mmol/L (3.5-5.1)
[2022-03-29] MEDS ORDERED: POTASSIUM CL SA 10 MEQ TAB PO ONE (07:30)
[2022-03-29] MEDS: INSULIN -REGULAR HUMAN 50 UNIT/0.5 ML ML SQ SCH ×4 (07:30→21:00)
[2022-03-29] MEDS: ENOXAPARIN 40 MG/0.4 ML SQ SCH (08:42)
[2022-03-29] MEDS: AMLODIPINE 5 MG TAB PO SCH (08:42)
--- NOTE | 2022-03-29 14:43 | EKG ---
Test Date: 2022-03-28 Test Time: 09:30:20 In Process Inspector: TM MEASUREMENT RESULTS: Intervals: Rate: 85 IN: 144 QRSD: 82 QT: 374 QTc: 445 [place]: P: 103 IN: 144 QRS: 58 T: 34 INTERPRETIVE STATEMENTS: Normal sinus rhythm Normal ECG Compared to ECG 07/12/2021 19:31:24 No significant changes Electronically Signed On 03-29-22 14:40:57 CDT by Gal Means
[2022-03-29 23:26] VITALS: O2SAT 95
--- NOTE | 2022-03-29 23:55 | P.PN ---
Subjective Date of Service: 03/29/22 patient remains nauseated. Simply needs to get out of bed and ambulate. MRI of the brain in the morning. Review of Systems 10-point ROS is otherwise unremarkable Physical Examination - Vital Signs Temperature: 97.5 F Blood Pressure: 144/74 Pulse: 56 Respirations: 16 Pulse Ox (%): 95 - Physical Exam General: Alert, In no apparent distress HEENT: Atraumatic, PERRLA, EOMI Neck: Supple, JVD not distended Respiratory: Clear to auscultation bilaterally, Normal air movement Cardiovascular: Regular rate/rhythm, Normal S1 S2 Gastrointestinal: Normal bowel sounds, No tenderness Musculoskeletal: No tenderness Integumentary: No rashes Neurological: Normal speech, Normal tone, Normal affect Lymphatics: No axilla or inguinal lymphadenopathy - Studies Medications List Reviewed: Yes Assessment & Plan - Problems (Diagnosis) (1) Nausea Current Visit: Yes Status: Acute (2) Fall Current Visit: No Status: Acute (3) UTI (urinary tract infection) Current Visit: No Status: Acute Qualifiers: Urinary tract infection type: acute cystitis Hematuria presence: with hematuria Qualified Code(s): N30.01 - Acute cystitis with hematuria (4) HLD (hyperlipidemia) Current Visit: No Status: Chronic Qualifiers: Hyperlipidemia type: unspecified Qualified Code(s): E78.5 - Hyperlipidemia, unspecified (5) HTN (hypertension) Current Visit: No Status: Chronic Qualifiers: Hypertension type: primary hypertension Qualified Code(s): I10 - Essential (primary) hypertension - Advance Directives Does patient have a Living Will: No Does patient have a Durable POA for Healthcare: No
[2022-03-30] MEDS: ONDANSETRON 4 MG/2 ML VIAL IV PRN (03:55)
[2022-03-30] MEDS: carvediloL 12.5 MG TAB PO SCH (06:05)
[2022-03-30] MEDS: INSULIN -REGULAR HUMAN 50 UNIT/0.5 ML ML SQ SCH ×2 (07:30→11:30)
--- NOTE | 2022-03-30 08:41 | RAD REPORT ---
EXAM DESCRIPTION: MRI - Brain Wo Cont - 03/30/2022 7:59 am CLINICAL HISTORY: CVA, weakness, loss of balance COMPARISON: Head Brain Wo Cont dated 03/28/2022; Head C Spine Cap W Con dated 07/12/2021 TECHNIQUE: Sagittal T1-weighted images were obtained along with axial PD, heavily T2-weighted and T2 -FLAIR images. Axial DWI and ADC mapping sequences were also obtained along with coronal heavily T2-w eighted images. FINDINGS: Diffusion imaging shows no acute or subacute infarction. No mass, edema or shift of midlin e structures. There is no edema or shift of midline structures. No extra-axial fluid collections. Gra y-matter/white matter junction is preserved. Signal voids are seen as a normal finding in the major i ntracranial vessels. Patient has advanced chronic ischemic change throughout the cerebral hemispheric white matter with le ss pronounced chronic ischemic change in the basal ganglia and thalamus tissues. There are advanced c hronic ischemic changes in the brainstem. Moderate atrophy changes are present. Ventricles are enlarg ed and appear to be slightly out of proportion to the amount of volume loss. Correlation is needed wi th any history or exam findings that would support normal pressure hydrocephalus diagnosis. Mastoid air cells and paranasal sinuses are clear. No globe or orbital content abnormality. IMPRESSION: No acute or subacute infarction. No acute intracranial finding seen. Advanced chronic ischemic changes are seen in the cerebral white matter and brainstem with less promi nent chronic ischemic changes in the basal ganglia and thalamus. Patient has moderate atrophy with ventriculomegaly that appears to be slightly out of proportion to t his amount of volume loss. Correlation can be made with any history or exam findings of normal pressu re hydrocephalus.
[2022-03-30] MEDS: AMLODIPINE 5 MG TAB PO SCH (10:05)
[2022-03-30] MEDS: ENOXAPARIN 40 MG/0.4 ML SQ SCH (10:06)
[2022-03-30 23:53] VITALS: BP 144/74; TEMP 97.5
--- NOTE | 2022-03-30 23:53 | P.DS ---
Discharge Date: 03/30/22 Disposition: ROUTINE DISCHARGE Discharge Condition: GOOD Reason for Admission: Hypertensive urgency, low back pain, nausea and vomiting - Problems (1) Nausea Status: Acute (2) Fall Status: Acute (3) UTI (urinary tract infection) Status: Acute Qualifiers: Urinary tract infection type: acute cystitis Hematuria presence: with hematuria Qualified Code(s): N30.01 - Acute cystitis with hematuria (4) HLD (hyperlipidemia) Status: Chronic Qualifiers: Hyperlipidemia type: unspecified Qualified Code(s): E78.5 - Hyperlipidemia, unspecified (5) HTN (hypertension) Status: Chronic Qualifiers: Hypertension type: primary hypertension Qualified Code(s): I10 - Essential (primary) hypertension Brief History of Present Illness: 81-year-old female patient with medical history significant for hypertension, hyperlipidemia, history of coronary artery disease status post stent placement was evaluated in the emergency room for episode of low back pain. She reported this pain started before coming to the emergency room today was rated 8 out of 10 in intensity. No issues with chest pain, shortness of breath, dizziness. However she did have episode of nausea. She was worked up in the ER and was found to have severely elevated blood pressure with systolic over 200 so she was given pain control for pink in the lower back and was also given antihypertensive medication. She was asked to be evaluated for inpatient management because of hypertensive urgency. CTA of the aorta done in the emergency room revealed no acute dissection however there was significant mention of severe peripheral vascular disease with 70% stenosis in the left iliac artery and also 50% stenosis in the origin of the left renal artery. Hospital Course: Patient has done well during hospital stay. MRI of the brain was negative. She is still weak. She has a lot of atrophy on her MRI. She is also little bradycardic with the carvedilol dosing. Her blood pressure is better controlled but her heart rate has come down so I told the family to hold off on the carvedilol. We may add another medication at this time. She is doing well and stable for discharge home with outpatient follow-up. Vital Signs/Physical Exam: Temp Pulse Resp BP Pulse Ox 97.6 F 51 16 138/63 99 03/30/22 12:00 03/30/22 12:00 03/30/22 12:00 03/30/22 12:00 03/30/22 12:00 General: Alert, In no apparent distress, Oriented x3 Laboratory Data at Discharge: WBC 10.3 K/uL (4.3-10.9) 03/28/22 09:30 Hgb 14.3 g/dL (12.0-15.0) 03/28/22 09:30 Hct 43.0 % (36.0-45.0) 03/28/22 09:30 Plt Count 160 K/uL (152-406) 03/28/22 09:30 Sodium 137 mmol/L (136-145) 03/29/22 05:21 Potassium 4.8 mmol/L (3.5-5.1) 03/29/22 14:15 BUN 13 mg/dL (7-18) 03/29/22 05:21 Creatinine 0.56 mg/dL (0.55-1.3) 03/29/22 05:21 Glucose 112 mg/dL (74-106) H 03/29/22 05:21 Phosphorus 3.1 mg/dL (2.5-4.9) 03/29/22 05:21 Magnesium 2.1 mg/dL (1.8-2.4) 03/29/22 05:21 Total Bilirubin 0.4 mg/dL (0.2-1.0) 03/28/22 09:30 AST 12 U/L (15-37) L 03/28/22 09:30 ALT 11 U/L (12-78) L 03/28/22 09:30 Alkaline Phosphatase 65 U/L (45-117) 03/28/22 09:30 Triglycerides 117 mg/dL (<150) 03/29/22 05:21 Cholesterol 200 mg/dL (<200) 03/29/22 05:21 HDL Cholesterol 50 mg/dL (40-60) 03/29/22 05:21 Cholesterol/HDL Ratio 4.00 03/29/22 05:21 Lipase 265 U/L (73-393) 03/28/22 09:30 Home Medications: Amlodipine [Norvasc*] 10 mg PO DAILY 30 Days #30 tab 07/19/21 Oxybutynin Chloride [Ditropan*] 5 mg PO DAILY 03/28/22 Amlodipine [Norvasc*] 5 mg PO DAILY #30 tab 03/30/22 Losartan Potassium 50 mg PO BID #60 tablet 03/30/22 Ondansetron [Zofran] 4 mg PO Q6H PRN #20 tab 03/30/22 carvediloL [Coreg*] 12.5 mg PO BID 6AM 6PM #60 tab 03/30/22 New Medications: carvediloL [Coreg*] 12.5 mg PO BID 6AM 6PM #60 tab Losartan Potassium 50 mg PO BID #60 tablet Amlodipine [Norvasc*] 5 mg PO DAILY #30 tab Ondansetron [Zofran] 4 mg PO Q6H PRN #20 tab PRN Reason: Nausea / Vomiting Physician Discharge Instructions: OK TO DC IV AND DC HOME FOLLOW-UP WITH PRIMARY CARE PROVIDER IN 1-2 WEEKS FOLLOW-UP WITH NEUROLOGY IN 1-2 WEEKS RETURN TO THE ER IF symptoms worsen CALL DR. PICKARD AT [phone] IF ANY QUESTIONS REGARDING HOSPITAL STAY. PLEASE CALL THE FLOOR AT [phone] IF ANY MEDICATION OR NURSING QUESTIONS. Diet: AHA Activity: Fall precautions Followup: Luis Rudd MD [Primary Care Provider] - 1 Week Time spent managing pt's care (in minutes): 35
== END 2022-03-30 12:58 | disposition home or self-care (01) ==
LOC: ER 09:14 → ERHOLD 14:38 → 2ND 17:51
PROVIDERS: ADMIT Internal Medicine Nephrology; ATTEND Hospitalist
DX: I16.0 Hypertensive urgency (principal); M54.50 Low back pain, unspecified; R11.0 Nausea; R53.1 Weakness; E78.5 Hyperlipidemia, unspecified; R53.81 Other malaise; I70.202 Unspecified atherosclerosis of native arteries of extremities, left leg; I70.1 Atherosclerosis of renal artery; I70.8 Atherosclerosis of other arteries; I25.10 Atherosclerotic heart disease of native coronary artery without angina pectoris; G31.9 Degenerative disease of nervous system, unspecified; Z95.5 Presence of coronary angioplasty implant and graft; Z28.310 Unvaccinated for COVID-19; Z20.822 Contact with and (suspected) exposure to COVID-19
CPT/HCPCS: 36415; 51702; 70450; 70551; 71045; 71275; 74175; 80048; 80053; 80061; 81003; 81015; 82947; 83690; 83735; 84100; 84132; 84484; 85025; 93005; 96361; 96374; 96375; 97116; 97161; 99285; G0378; J0360; J1650; J2405; J7030; Q9967; U0003

== ENCOUNTER 2023-07-30 13:12 | Emergency (ER) | payer OTHER ==
--- OUTSIDE RECORDS SUMMARY | 2023-07-30 13:22 | XMS REPORT | Continuity of Care Document ---
:1940 Author Organization [facility] t Address [address] [place] [id number] Care Team Providers Name Role Phone [email or web address]_S Attending Clinician Unavailable Michael-Mbayo_A_AH Attending Clinician Unavailable [email or web address]_S Admitting Clinician Unavailable Michael-Mbayo_A_AH Admitting Clinician Unavailable Payers Payer Name Policy Type Policy Number Effective Date Expiration Date [address] [facility] [place] - [id number] 2019 [facility] 00:00:00 (MEDICARE REPLACEMENT/ADVANT AGE - HMO) Problems This patient has no known problems. Allergies, Adverse Reactions, Alerts This patient has no known allergies or adverse reactions. Medications This patient has no known medications. Procedures This patient has no known procedures. Encounters Start End Encounter Admission Attending Care Care Encounter Source Date/Time Date/Time Type Type Clinicians Facility Department ID 2023-07-29 2023-07-29 Outpatient GC_GCBZW_Ka PRIV PRIV [id number] [facility] 00:00:00 00:00:00 [id number] [id number] Medic al 2019-11-29 2019-11-29 Outpatient Michael-Mbayo VFP VFP [id number] [facility] 01:06:00 01:06:00 _A_AH [id number] Family Practic e 2019-11-29 2019-11-29 Outpatient Michael-Mbayo VFP VFP [id number] [facility] 01:06:00 01:06:00 _A_AH [id number] Family Practic e 2019-11-29 2019-11-29 Outpatient Michael-Mbayo VFP VFP [id number] [facility] 01:06:00 01:06:00 _A_AH [id number] Family Practic e Results This patient has no known results.
--- NOTE | 2023-07-30 16:37 | RAD REPORT ---
EXAM DESCRIPTION: RAD - Hand Left 3 View - 07/30/2023 4:12 pm CLINICAL HISTORY: ANIMAL BITE COMPARISON: No comparisons FINDINGS/IMPRESSION: No acute fracture. Moderate degenerate changes are present at the third DIP porsche nt. Slight radiate subluxation of the third distal phalanx is likely related underlying degenerative changes. No radiopaque foreign body.
--- NOTE | 2023-07-30 16:38 | RAD REPORT ---
EXAM DESCRIPTION: RAD - Foot Right 3 View - 07/30/2023 4:12 pm CLINICAL HISTORY: ANIMAL BITE COMPARISON: No comparisons FINDINGS/IMPRESSION: No acute fracture. No malalignment. Plantar aspect calcaneal spurring.
--- NOTE | 2023-07-30 16:41 | ER ---
Nurse's Notes [facility] Name: Marsha Jacob Age: 83 yrs Sex: Female : 1940 Arrival Date: 07/30/2023 Time: 13:12 Bed DIS1 Private MD: Diagnosis: Bitten by dog Presentation: 07/30 14:41 Chief complaint: Bit on left hand and right foot by family dog. Bleeding controlled. hb Coronavirus screen: At this time, the client does not indicate any symptoms associated with coronavirus-19. Ebola Screen: No symptoms or risks identified at this time. Initial Sepsis Screen: Does the patient meet any 2 criteria? No. Patient's initial sepsis screen is negative. Does the patient have a suspected source of infection? No. Patient's initial sepsis screen is negative. Risk Assessment: Do you want to hurt yourself or someone else? Patient reports no desire to harm self or others. Onset of symptoms was July 30, 2023. 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 - Social history:: Smoking status: Patient denies any tobacco usage or history of. Vital Signs: 14:41 BP 155 / 91; Pulse 87; Resp 18; Temp 97.1; Pulse Ox 100% on R/A; Weight 58.97 kg; hb Height 5 ft. 0 in. ; Pain 10/10; 14:41 Body Mass Index 25.39 (58.97 kg, 152.4 cm) hb 14:41 Pain Scale: Adult hb ED Course: 13:18 Patient arrived in ED. mg5 13:53 Mode Prescott MD is Attending Physician. ec2 14:43 Triage completed. hb 14:44 Arm band placed on left wrist. hb 16:14 Hand Left 3 View XRAY In Process Unspecified. EDMS 16:14 Foot Right 3 View XRAY In Process Unspecified. EDMS 17:13 Bipin, Preeti, RN is Primary Nurse. iw 17:40 Patient has correct armband on for positive identification. Provided Education on: jl7 wound care. 17:40 No provider procedures requiring assistance completed. Patient did not have IV access jl7 during this emergency room visit. Administered Medications: 17:25 Drug: Boostrix Tdap IM 0.5 ml IM once; as a single dose Route: IM; Site: right deltoid; jl7 17:45 Follow up: Response: No adverse reaction iw 17:39 Drug: Amoxicillin-Clavulanate PO 875 mg PO once Route: PO; jl7 17:45 Follow up: Response: No adverse reaction Outcome: 16:41 Discharge ordered by . ec2 17:40 Discharged to home ambulatory, with family, jl7 17:40 Condition: stable 17:40 Discharge instructions given to patient, Instructed on discharge instructions, follow up and referral plans. medication usage, Demonstrated understanding of instructions, follow-up care, medications, Prescriptions given X 1, 17:41 Patient left the ED. 7 Signatures: Dispatcher [employer] Preeti Regalado RN RN Seema Ca RN RN hb Leal, Jahala, RN RN jlKatrin Sadler mg5 Mode Prescott MD MD 2
--- NOTE | 2023-07-30 16:41 | EDPHYS ---
Physician Documentation [facility] Name: Marsha Jacob Age: 83 yrs Sex: Female : 1940 Arrival Date: 07/30/2023 Time: 13:12 Bed DIS1 Private MD: ED Physician Mode Prescott HPI: 07/30 14:51 This 83 yrs old Female presents to ER via Ambulatory with complaints of Dog ec2 Bite. 14:51 Patient arrives after being bitten by dog x2 in the left hand and right foot. Patient ec2 reports that the dog is up-to-date on the vaccines, denies any other concerns.. Historical: - Allergies: 14:43 No Known Drug Allergies; hb - Home Meds: 14:43 amlodipine oral [Active]; Oxybutynin Chloride Oral [Active]; carvedilol oral [Active]; hb - PMHx: 14:43 Bladder Spasms; Hyperlipidemia; Hypertension; hb - Immunization history:: Last tetanus immunization: unknown. - Social history:: Smoking status: Patient denies any tobacco usage or history of. ROS: 14:51 Constitutional: as per hpi ec2 Exam: 14:51 Constitutional: GEN: NAD Head: atraumatic Eyes: EOMI Ears: External ears are ec2 normal. CV: regular rate LUNGS: no respiratory distress ABD: non-distended SKIN: Puncture wounds noted in the left hand, near the second and third metatarsals, skin tears noted in the left foot, near the web of the first and second digit. NEURO: moves all extremities equally Vital Signs: 14:41 BP 155 / 91; Pulse 87; Resp 18; Temp 97.1; Pulse Ox 100% on R/A; Weight 58.97 kg; hb Height 5 ft. 0 in. ; Pain 10/10; 14:41 Body Mass Index 25.39 (58.97 kg, 152.4 cm) hb 14:41 Pain Scale: Adult hb MDM: 13:53 Patient medically screened. ec2 14:51 ED course: Patient arrives today for injury evaluation after being bitten by dog x2. ec2 Examination remarkable for well-appearing nontoxic individual who has skin findings as noted above. Will obtain radiographs of the hand and the foot and update the patient's tetanus status and give the patient a dose of Augmentin. Currently considering bony fracture, soft tissue skin contamination.. 16:40 Data reviewed: vital signs. ED course: Radiograph showed no acute fracture. Will ec2 discharge home with wound care and Augmentin. Return precautions given.. 07/30 14:48 Order name: Hand Left 3 View XRAY; Complete Time: 16:40 ec2 07/30 14:48 Order name: Foot Right 3 View XRAY; Complete Time: 16:40 ec2 Administered Medications: 17:25 Drug: Boostrix Tdap IM 0.5 ml IM once; as a single dose Route: IM; Site: right deltoid; jl7 17:45 Follow up: Response: No adverse reaction iw 17:39 Drug: Amoxicillin-Clavulanate PO 875 mg PO once Route: PO; jl7 17:45 Follow up: Response: No adverse reaction iw Disposition Summary: 07/30/23 16:41 Discharge Ordered Notes: Location: Home ec2 Condition: Stable ec2 Diagnosis - Bitten by dog ec2 Discharge Instructions: - Discharge Summary Sheet ec2 - Animal Bite, Adult, [id number] ec2 Forms: - Medication Reconciliation Form ec2 - Thank You Letter ec2 - Antibiotic Education ec2 - Prescription Opioid Use ec2 - Patient Portal Instructions ec2 - Leadership Thank You Letter ec2 Prescriptions: - Augmentin 875-125 mg Oral Tablet - take 1 tablet ORAL route every 12 hours for 10 days; 20 tablet; Refills: 0, ec2 Product Selection Permitted Signatures: Dispatcher [employer] Seema Martin RN RN Ken Leong RN RN jl7 Mode Prescott MD MD ec2 Preeti Voss RN
[2023-07-30] MEDS ORDERED: AMOX/K CLAV 875 MG TAB ONE (17:34)
[2023-07-30] MEDS ORDERED: TDAP (DIPHTH,PERTUSS(ACELL),TET VAC) 0.5 ML VIAL IMVAC ONE (17:35)
[2023-07-30 17:46] VITALS: BP 155/91; TEMP 97.1; O2SAT 100
== END 2023-07-30 17:41 | disposition home or self-care (01) ==
LOC: ER 13:12
DX: S61.432A Puncture wound without foreign body of left hand, initial encounter (principal); W54.0XXA Bitten by dog, initial encounter
CPT/HCPCS: 96372; 99284